=== PATIENT | female | born 1965 | race Caucasian/White ===

== ENCOUNTER 2020-02-04 13:08 | Emergency (ER) | payer BC, SELFPAY ==
[2020-02-04 13:21] VITALS: BP 110/69; PULSE 63; RESP 16; TEMP 37.2; O2SAT 100
--- NOTE | 2020-02-04 13:24 | ED.GENADULT ---
HPI - General Adult General Chief complaint: Skin/Abscess/Foreign Body Stated complaint: Rash Time Seen by Provider: 02/04/20 13:24 Source: patient and RN notes reviewed Mode of arrival: ambulatory Limitations: no limitations History of Present Illness HPI narrative: 54-year-old female presents with complaints of with redness, tenderness, and swelling to LT buttock and RT upper-anterior thigh for the past 7 days. Says she was out in the ocean in [place] 1 weeks ago prior to lesions forming. Applied over the counter ointment and warm soaks without relief. Tender to touch. Clear drainage intermittently. History of skin abscess. Denies history of MRSA. No fever or chills. No abdominal pain, nausea, and vomiting. Remains active. The patient reports she have not been diagnosed with COVID-19. The patient reports she is not waiting for the results of a COVID-19 lab test. The patient reports she do not have fever, chills, weakness, fatigue, or myalgia. The patient reports she do not have a new or worsening cough or shortness of breath. Denies chest pain. The patient reports she do not have any rhinorrhea, congestion, sore throat, nausea, vomiting, abdominal pain, and diarrhea. Tolerating po intake well. Recent traveled to [place] for family vacation and practiced social distance. Denies concerns for COVID-19 or exposures, work, and return home. At this time, patient is not suspected of having COVID-19. Some parts of this dictation were generated by voice recognition software and may contain typographical and/or grammatical inaccuracies. Related Data Allergies Allergy/AdvReac Type Severity Reaction Status Date / Time No Known Allergies Allergy Verified 02/04/20 13:25 Review of Systems Review of Systems: Narrative: CONSTITUTIONAL: Denies fever, chills, sweats. EYES: Denies visual changes, redness, discharge. ENT: Denies rhinorrhea, congestion, sore throat, otalgia. CARDIOVASCULAR: Denies chest pain, palpitations, edema. RESPIRATORY: Denies dyspnea, wheezing, cough. GASTROINTESTINAL: Denies abdominal pain, nausea, vomiting, diarrhea. GENITOURINARY: Denies dysuria, hematuria, abnormal discharge. SKIN: Denies rash or itching. Left buttock and Right upper-anterior thigh with redness, tenderness, swelling, and drainage. MUSCULOSKELETAL: Denies acute back pain, joint pain, or myalgia. NEUROLOGIC: Denies numbness or focal weakness. PSYCHIATRIC: Denies anxiety or depression. All systems reviewed & are unremarkable except as noted in HPI and below. [facility] Past Medical History Medical History (Updated 02/10/20 @ 14:41 by MARA Fournier) Abnormal colonoscopy Abscess Alcohol abuse Alopecia Chronic anxiety Chronic rhinitis Colon polyps Surgical History Surgical History (Updated 02/10/20 @ 14:40 by MARA Fournier) History of colonoscopy Family History Family History (Updated 03/21/19 @ 10:10 by DOCTOR UNKNOWN) Grandparent Diabetes mellitus Acute myocardial infarction Mother Family history of cardiac disorder Social History Social History (Updated 02/10/20 @ 14:41 by MARA Fournier) Smoking status: Former smoker Smoking end date: 07/06/05 Alcohol intake: current Substance use: never Living arrangements: with family Occupation/Education: occupation Gender identity (if verbalized by the patient): Female Sexual Orientation (if Verbalized by the Patient): Straight or Heterosexual Comments At time of signature, I have reviewed and agree with nursing past medical, surgical, social, and family history. Please see nursing chart for further information. There is relevant patient's past medical history pertinent to the presenting complaint, no relevant family history pertinent to the presenting complaint. Exam Narrative: Exam Narrative: GENERAL: This is a well-nourished, well-developed patient, in no apparent distress. Talking in full sentences without deficit and ambulate w
== END 2020-02-04 13:59 | disposition home or self-care (01) ==
PROVIDERS: Emergency Provider Nurse Practitioner Family; PCP Family Medicine
DX: H60.01 Abscess of right external ear (principal); Z87.891 Personal history of nicotine dependence
CPT/HCPCS: 10160; 87070; 87075; 87147; 87186; 87205; 99213; G0463

== ENCOUNTER 2020-04-27 03:31 | Outpatient (CLI) | payer BC, SELFPAY ==
[2020-04-27 17:45] LABS: SARS-CoV-2 RNA PCR Negative
== END 2020-04-27 03:32 | disposition home or self-care (01) ==
LOC: ANHCOVIDDT 03:31
PROVIDERS: PCP Family Medicine; Visit Provider Internal Medicine Gastroenterology
DX: Z01.812 Encounter for preprocedural laboratory examination (principal); Z20.828 Contact with and (suspected) exposure to other viral communicable diseases
CPT/HCPCS: 87635; C9803; U0003

== ENCOUNTER 2020-04-30 01:01 | Day surgery (SDC) | payer BC, SELFPAY ==
[2020-04-23 12:18] VITALS: BMI 30.7
[2020-04-30] MEDS: LACTATED RINGERS 1,000 ML 150 ML IV CONT (08:27)
[2020-04-30 08:30] VITALS: BP 111/80; PULSE 66; RESP 20; TEMP 36.5; O2SAT 99; BMI 29.9
--- NOTE | 2020-04-30 08:34 | WPDANESEPPF ---
Anes - Initial Pre Proc Eval Procedure: Operation Date: 04/30/20 09:00 Proposed Procedures p Screening Colonoscopy - Jim Klein MD Date/Time: 04/30/20 08:34 Surgeon: Jim Klein MD Pre Op Diagnosis: neoplasm screening Patient Data Age: 54 Gender: F Height: 5 ft 6 in Weight: 84.1 kg Last Vital Signs Temp 97.7 F 04/30/20 08:30 Pulse 66 04/30/20 08:30 Resp 20 04/30/20 08:30 BP 111/80 04/30/20 08:30 Pulse Ox 99 04/30/20 08:30 Allergies Allergy/AdvReac Type Severity Reaction Status Date / Time No Known Allergies Allergy Verified 04/30/20 08:16 Home Medications Medication Instructions Recorded Confirmed Type alprazolam 0.25 mg tablet 0.25 mg PO TID PRN #60 tablet 04/05/20 04/23/20 Rx Patient hx anesthesia problems: none Family hx anesthesia problems: none PMFSH Past Medical History Medical History (Updated 02/15/20 @ 15:32 by Cristiano Carlson MD) Abnormal colonoscopy Abscess Alcohol abuse Alopecia Chronic anxiety Chronic rhinitis Colon polyps Surgical History Surgical History History of colonoscopy Family History Family History Grandparent Diabetes mellitus Acute myocardial infarction Mother Family history of cardiac disorder Social History Social History Smoking status: Former smoker Tobacco type: cigarettes Smoking end date: 07/06/05 Alcohol intake: current Alcohol use details: SOCIALLY Substance use: never Substance use type: does not use Last use: 8 YEARS AGO Living arrangements: with family Gender identity (if verbalized by the patient): Female Spiritual care concerns: No Anes - Eval Final PreProcedure Day of Procedure 04/30/20 08:34 Patient weight: normal Heart: regular rate and rhythm Lungs: clear to auscultation Airway: Mallampati scale class II Neurological: alert and oriented Last oral intake: >/= 8 hours ASA classification: II Emergent: no Anesthetic plan: proceed Anesthesia type and monitoring: general GIVS and standard monitoring Informed Consent: The patient's anesthetic plan and its attendant risks and benefits were discussed with the patient/family/POA. Questions were solicited and answers provided to the satisfaction of the patient/family/POA.
--- NOTE | 2020-04-30 08:39 | PM.HPGS ---
History of Present Illness History of Present Illness Consent: Risks, benefits, and alternatives have been discussed and questions answered. Patient agrees to proceed with procedure. Chief complaint: neoplasm screening Narrative: Jocelyne Costa is a 54 year old W female undergoing screening colonoscopy secondary to a malignant polyp which was removed in April 2017. Was well differentiated adenocarcinoma invading the submucosa but not involving the resection margin. Patient did have a follow-up colonoscopy August 2017 there is no residual polyp near the tattoo site. Patient is asymptomatic but undergoing of follow-up exam. [facility] Past Medical History Medical History Abnormal colonoscopy Abscess Alcohol abuse Alopecia Chronic anxiety Chronic rhinitis Colon polyps Surgical History Surgical History History of colonoscopy Family History Family History Grandparent Diabetes mellitus Acute myocardial infarction Mother Family history of cardiac disorder Social History Social History Smoking status: Former smoker Tobacco type: cigarettes Smoking end date: 07/06/05 Alcohol intake: current Alcohol use details: SOCIALLY Substance use: never Substance use type: does not use Last use: 8 YEARS AGO Living arrangements: with family Gender identity (if verbalized by the patient): Female Spiritual care concerns: No Meds Home Medications and Allergies Home Medications Medication Instructions Recorded Confirmed Type alprazolam 0.25 mg tablet 0.25 mg PO TID PRN #60 tablet 04/05/20 04/23/20 Rx Allergies Allergy/AdvReac Type Severity Reaction Status Date / Time No Known Allergies Allergy Verified 04/30/20 08:16 Vital Signs Vital Signs - 24 hr 04/30/20 08:30 Temperature 36.5 C Pulse Rate 66 Respiratory Rate 20 Blood Pressure 111/80 Pulse Oximetry 99 Exam Const: Orientation/consciousness: patient oriented x3 Resp: Auscultation: clear to auscultation bilaterally Cardio: Rate: regular rate Rhythm: regular rhythm Heart sounds: no murmurs GI: GI Palp: Yes Soft to palpation, No Tenderness to palpation present (GI), Yes No hepatosplenomegaly present and No Palpable mass present Auscultation: normal bowel sounds Neuro: General: patient oriented x3 and no focal motor deficits Extrem: General: no pedal edema Assessment and Plan Additional Plan Screening colonoscopy secondary history of colon cancer
[2020-04-30 10:02] VITALS: BP 98/58; PULSE 61; RESP 16; O2SAT 100
[2020-04-30 10:12] VITALS: BP 120/70; PULSE 63; RESP 22; O2SAT 100
[2020-04-30 10:22] VITALS: BP 100/69; PULSE 55; RESP 21; O2SAT 100
== END 2020-04-30 10:30 | disposition home or self-care (01) ==
PROVIDERS: PCP Family Medicine; Visit Provider Internal Medicine Gastroenterology
PROC: 0DJD8ZZ Inspection of Lower Intestinal Tract, Via Natural or Artificial Opening Endoscopic (ICD-10-PCS; CPT 45378; principal; 2020-04-30 09:00)
DX: Z12.11 Encounter for screening for malignant neoplasm of colon (principal); L65.9 Nonscarring hair loss, unspecified; F41.9 Anxiety disorder, unspecified; J31.0 Chronic rhinitis; Z87.891 Personal history of nicotine dependence; F10.10 Alcohol abuse, uncomplicated; Z85.038 Personal history of other malignant neoplasm of large intestine
CPT/HCPCS: 45378; J2704; J7120

== ENCOUNTER 2021-03-20 16:47 | Emergency (ER) | payer BC, SELFPAY ==
[2021-03-20 16:57] VITALS: BP 130/80; PULSE 66; RESP 18; TEMP 36.8; O2SAT 100
--- NOTE | 2021-03-20 17:16 | ED.FEMALEGU ---
HPI - Female Genitourinary General Chief complaint: Urogenital-Female Stated complaint: UTI Time Seen by Provider: 03/20/21 17:17 Source: patient Mode of arrival: ambulatory Limitations: no limitations History of Present Illness HPI Narrative: Jocelyne Costa is a 55 yo female with a PMH of anxiety who [facility] complaining of urinary tract symptoms x1 week. She states she has had pressure and burning is tried drinking water, drinking cranberry juice, improving good hygiene. She is mildly upset because of other family issues going on and states that she has been somewhat stressed and drinks alcohol bit more than she normally does Related Data Allergies Allergy/AdvReac Type Severity Reaction Status Date / Time No Known Allergies Allergy Verified 03/20/21 17:03 Review of Systems Review of Systems: CONSTITUTIONAL: Denies fever, chills, sweats. EYES: Denies visual changes, redness, discharge. ENT: Denies rhinorrhea, congestion, sore throat, otalgia. CARDIOVASCULAR: Denies chest pain, palpitations, edema. RESPIRATORY: Denies dyspnea, wheezing, cough GASTROINTESTINAL: Denies abdominal pain, nausea, vomiting, diarrhea. GENITOURINARY: Has dysuria, hematuria, abnormal discharge SKIN: Denies rash or itching. NEUROLOGIC: Denies numbness, or focal weakness. PSYCHIATRIC: Denies anxiety or depression. [facility] Past Medical History Medical History Abnormal colonoscopy Abscess Alcohol abuse Alopecia Chronic anxiety Chronic rhinitis Colon cancer Colon polyps Surgical History Surgical History History of colonoscopy Family History Family History Grandparent Diabetes mellitus Acute myocardial infarction Mother Family history of cardiac disorder Social History Social History Smoking status: Former smoker Tobacco type: cigarettes Smoking end date: 07/06/05 Alcohol intake: current Alcohol use details: SOCIALLY Substance use: never Substance use type: does not use Last use: 8 YEARS AGO Gender identity (if verbalized by the patient): Female Sexual Orientation (if Verbalized by the Patient): Straight or Heterosexual Spiritual care concerns: No Comments At time of signature, I agree with nursing past medical, surgical, social and family history. There is no relevant family history pertinent to the presenting complaint. Exam Narrative: GENERAL: This is a well-nourished, well-developed patient, in mild distress. HEAD: normocephalic, atraumatic. EYES: Sclera clear/white. Vision is grossly intact. EARS: External ears normal. Hearing grossly intact. NOSE: External nose normal without nasal discharge, nares without redness, no rhinorrhea. THROAT: Mucous membranes moist, NECK: Neck supple, non-tender CARDIOVASCULAR: Regular rate and rhythm without murmurs, gallops, or rubs. RESPIRATORY: Clear to auscultation. Breath sounds equal bilaterally. No wheezes, rales, or rhonchi. GASTROINTESTINAL: Abdomen soft, non-tender, SKIN: warm, intact with no suspicious lesions or rash, good texture and turgor. NEURO: awake, alert, and oriented to person, place and time. There were no obvious focal neurologic abnormalities. Steady gait EXTREMITIES: Normal range of motion. BACK: Nontender without deformity Course Course Emergency Course: Patient here with area check symptoms that started a week ago she has tried to treat them with increasing her water, intake as well as drinking cranberry juice She is mildly upset in the office states things are going well with home she has been having a lot of anxiety-talks to her primary care physician UA shows blood and trace leukocytes Started on cephalexin x7 days Patient is to take full prescription, she is leaving on a trip on Thursday for her 31th w
== END 2021-03-20 18:17 | disposition home or self-care (01) ==
PROVIDERS: Emergency Provider Nurse Practitioner; PCP Family Medicine
DX: N30.90 Cystitis, unspecified without hematuria (principal); Z87.891 Personal history of nicotine dependence
CPT/HCPCS: 81003; 87077; 87086; 87088; 87186; 99213; G0463

== ENCOUNTER 2022-03-26 21:53 | Emergency (ER) | payer BC, SELFPAY ==
--- NOTE | ~2022-03-26 | XR_ITS ---
EXAM: XR wrist LT min 3V DATE: 03/26/2022 22:12 HISTORY: fall TONIGHT, SWELLING TO LATERAL POSTERIOR SIDE . COMPARISON: None available. FINDINGS: Normal mineralization. Comminuted, mildly impacted fracture of the left distal radius, wit h intra-articular extension. No lytic or blastic lesion. Degenerative changes in the wrist, likely se condary to ulnar impaction. No erosion or periosteal change. Soft tissue swelling about the wrist. IMPRESSION: Comminuted, mildly impacted fracture of the distal left radius, with intra-articular exte nsion. Reviewed, dictated and finalized at location K. IMPRESSION: Comminuted, mildly impacted fracture of the distal left radius, wit h intra-articular extension.
[2022-03-26 22:19] VITALS: BP 115/68; PULSE 80; RESP 16; TEMP 36.6; O2SAT 99
--- NOTE | 2022-03-27 00:12 | ED.UPPEXIN ---
HPI - Extremity Injury (Upper) General Chief Complaint: Extremity Injury, Upper Stated Complaint: fall/left wrist injury Time Seen by Provider: 03/26/22 23:58 Source: patient Mode of arrival: ambulatory Limitations: no limitations History of Present Illness HPI narrative: This is a 56-year-old female that presents emergency department after a fall today with left wrist injury. Reports she slipped and fell in her garage. She fell onto her bottom and caught herself with her left wrist. Reports pain and swelling in the left wrist. Denies hitting her head or loss of consciousness. Reports decreased range of motion due to pain. Denies numbness. Related Data Allergies Allergy/AdvReac Type Severity Reaction Status Date / Time No Known Allergies Allergy Verified 03/26/22 23:32 Review of Systems Review of Systems: CONSTITUTIONAL: Denies fever MUSCULOSKELETAL: Reports joint pain, and myalgia. NEUROLOGIC: Denies numbness All systems reviewed & are unremarkable except as noted in HPI and below PMFSH Past Medical History Medical History Abnormal colonoscopy Abscess Alcohol abuse Alopecia Chronic anxiety Chronic rhinitis Colon cancer Colon polyps Encounter for wellness examination in adult Epistaxis, recurrent (~07/2021) UTI (urinary tract infection) Surgical History Surgical History History of colonoscopy Family History Family History Grandparent Diabetes mellitus Acute myocardial infarction Mother Family history of cardiac disorder Social History Social History Smoking status: Former smoker Tobacco type: cigarettes Smoking end date: 07/06/05 Alcohol intake: current Alcohol use details: SOCIALLY Substance use: never Substance use type: does not use Last use: 8 YEARS AGO Gender identity (if verbalized by the patient): Female Sexual Orientation (if Verbalized by the Patient): Straight or Heterosexual Spiritual care concerns: No Exam Narrative: GENERAL: Well-appearing, well-nourished, and in no acute distress. HEAD: Normocephalic, atraumatic. EYES: EOMI. CHEST: Clear to auscultation. No respiratory distress. No wheezes rales or rhonchi HEART: Regular rate and rhythm. No murmur heard. Normal peripheral pulses. EXTREMITIES: Normal range of motion. No obvious deformity. Edema noted about the left wrist. Normal radial pulse. Normal sensation SKIN: Warm, dry, no rash. NEURO: No focal deficits. Alert and oriented x3. PSYCH: Normal mood and affect Course Vital Signs Vital signs: Vital Signs Temperature 97.9 F 03/26/22 22:19 Pulse Rate 80 03/26/22 22:19 Respiratory Rate 16 03/26/22 22:19 Blood Pressure 115/68 03/26/22 22:19 Pulse Oximetry 99 03/26/22 22:19 Oxygen Delivery Room Air 03/26/22 22:19 Temperature 97.9 F 03/26/22 22:19 Pulse Rate 73 03/27/22 00:40 Respiratory Rate 20 03/27/22 00:40 Blood Pressure 112/80 03/27/22 00:40 Pulse Oximetry 98 03/27/22 00:40 Oxygen Delivery Room Air 03/26/22 22:19 Procedures Orthopedic Splinting/Casting Injury #1: Splinting/Casting Date: 03/27/22 Splinting/Casting Time: 00:17 Side: left Upper Extremity Injury Location: wrist Upper Extremity Immobilizer: volar splint Splint: customized in ED OCL: volar Pre-Procedure Neuro Vascular Exam: normal Post-Procedure Neuro Vascular Exam: normal MDM - Extremity Injury (Upper) MDM Narrative Medical decision making narrative: Patient presents to the emergency department after ground-level fall today with left wrist pain. Patient is neurovascularly intact. Left wrist x-ray shows a comminuted mildly impacted fracture of the distal left radius. Patient placed in a splint. Will
[2022-03-27] MEDS: HYDROcodone/acetaminophen (*CRX) 5-325 MG TABLET 1 TAB PO (00:16)
[2022-03-27 00:25] VITALS: BP 113/83; PULSE 72; RESP 18; O2SAT 97
[2022-03-27 00:40] VITALS: BP 112/80; PULSE 73; RESP 20; O2SAT 98
== END 2022-03-27 00:35 | disposition home or self-care (01) ==
PROVIDERS: Emergency Provider General Practice; PCP Family Medicine
DX: S52.572A Other intraarticular fracture of lower end of left radius, initial encounter for closed fracture (principal); Z85.038 Personal history of other malignant neoplasm of large intestine; Z86.010 Personal history of colon polyps; Z87.440 Personal history of urinary (tract) infections; Z87.891 Personal history of nicotine dependence; W01.0XXA Fall on same level from slipping, tripping and stumbling without subsequent striking against object, initial encounter
CPT/HCPCS: 29125; 73110; 99284; A9270

== ENCOUNTER 2023-06-22 10:32 | Emergency (ER) | payer BC, SELFPAY ==
--- NOTE | ~2023-06-22 | XR_ITS ---
Right Knee Technique: AP, lateral, and sunrise views were obtained. Clinical History: Pain Findings: No fracture or dislocation is seen. Osseous alignment is anatomic. Joint spaces are preserv ed without degenerative or erosive change. Large joint effusion is seen. Impression: Large joint effusion, nonspecific. No fracture or subluxation seen. Reviewed, dictated and finalized at location . [employer] Impression: Large joint effusion, nonspecific. No fracture or subluxation seen.
--- NOTE | 2023-06-22 11:31 | ED.LOWEXIN ---
HPI - Extremity Injury (Lower) General Chief Complaint: Extremity Injury, Lower Stated Complaint: lower extremity injury Time Seen by Provider: 06/22/23 11:23 Source: patient and RN notes reviewed Mode of arrival: ambulatory Limitations: no limitations History of Present Illness HPI Narrative: Patient presents today complaining of a right knee injury. Yesterday she was shopping, tripped and fell onto her right knee, and limped the rest of the day. She currently rates her pain 8/10 and has been taking ibuprofen and using ice without much relief. Denies numbness or tingling in her leg or foot. Related Data Home Medications Medication Instructions Recorded Confirmed semaglutide 0.25 mg or 0.5 mg (2 0.5 mg subcut WEEKLY 06/04/23 06/22/23 mg/3 mL) subcutaneous pen injector (XunLightempRatify) Allergies Allergy/AdvReac Type Severity Reaction Status Date / Time No Known Allergies Allergy Verified 06/22/23 10:52 Review of Systems Review of Systems: CONSTITUTIONAL: Denies body aches, fever, chills, or sweats. EYES: Denies visual changes, redness, or discharge. ENT: Denies rhinorrhea, congestion, sore throat, or otalgia. CARDIOVASCULAR: Denies chest pain, palpitations, or edema. RESPIRATORY: Denies cough or dyspnea. GASTROINTESTINAL: Denies abdominal pain, nausea, vomiting, or diarrhea. GENITOURINARY: Denies dysuria or hematuria. SKIN: Denies rash, itching, or wounds. MUSCULOSKELETAL: Denies back pain, or myalgia.+ right knee pain NEUROLOGIC: Denies headache, numbness, tingling, or weakness. PSYCH: Denies depression or anxiety. [facility] Past Medical History Medical History Abnormal colonoscopy Abscess Alcohol abuse Alopecia BMI 30.0-30.9,adult Breast cancer screening by mammogram Chronic anxiety Chronic rhinitis Closed fracture of distal end of left radius (03/27/22) Colon cancer (04/30/20) polyp with well- Differentiated adenocarcinoma removed April 2017 with normal colonoscopy August 2017. Colonoscopy 04/30/2020 normal with recheck in 3 years. Colon polyps Encounter for wellness examination in adult Epistaxis, recurrent (~07/2021) Obesity (BMI 30.0-34.9) Personal history of colonic polyps Pharyngitis UTI (urinary tract infection) Surgical History Surgical History History of colonoscopy Family History Family History Grandparent Diabetes mellitus Acute myocardial infarction Mother Family history of cardiac disorder Social History Social History Smoking status: Former smoker Tobacco type: cigarettes Smoking end date: 07/06/05 Alcohol intake: former Substance use: never Substance use type: does not use Last use: 8 YEARS AGO Living arrangements: with family Occupation/Education: occupation Gender identity (if verbalized by the patient): Female Sexual Orientation (if Verbalized by the Patient): Straight or Heterosexual Spiritual care concerns: No Comments At time of signature, I have reviewed and agree with nursing past medical, surgical, social and family history unless otherwise noted. Please see nursing chart for further information. There is no relevant family history pertinent to the presenting complaint Exam Narrative: GENERAL: Well-appearing, well-nourished, and in no acute distress. HEAD: Normocephalic, atraumatic. EYES: EOMI. No redness or drainage. Conjunctivae normal. ENT: Mucous membranes pink and moist. NECK: Normal AROM. CHEST: No respiratory distress. EXTREMITIES: Right knee: Moderate swelling about the knee. Mild tenderness to the patella with some superficial abrasions to this area. No tenderness posteriorly. No abnormal movement of the patella. No tenderness to the patellar tendon. Pain with flex
[2023-06-22 12:08] VITALS: BP 108/77; PULSE 73; RESP 18; TEMP 36.3; O2SAT 100
== END 2023-06-22 12:20 | disposition home or self-care (01) ==
PROVIDERS: Emergency Provider Nurse Practitioner; PCP Family Medicine
DX: M25.461 Effusion, right knee (principal); Z87.891 Personal history of nicotine dependence; W01.0XXA Fall on same level from slipping, tripping and stumbling without subsequent striking against object, initial encounter
CPT/HCPCS: 73564; 99213; G0463

== ENCOUNTER 2023-07-02 15:02 | Inpatient (IN) | payer BC, SELFPAY ==
[2023-07-02] VITALS (22 sets, daily range): BP systolic 104–139; BP diastolic 51–89; PULSE 101–133; RESP 18–28; TEMP 36.9–38.4; O2SAT 72–100
--- NOTE | ~2023-07-02 | CT_ITS ---
EXAMINATION: CTA chest PE protocol DATE: 07/02/2023 16:43 INDICATION: This of breath and hypoxia TECHNIQUE: Computed tomography (CT) pulmonary angiogram of the chest was performed with 100 mL Omnipa que-350 intravenous contrast. Additional 3D reconstructions utilizing coronal maximum intensity proje ction (MIP) were performed. Automated exposure control and iterative reconstruction technique were em ployed. The dose-length product was 488.78 mGy-cm. COMPARISON: None FINDINGS: Good contrast opacification of the pulmonary arteries. There is mild streak artifact from dense contr ast in the superior vena cava and right atrium. There is mild respiratory motion at the bilateral low er lung zones which decreases sensitivity in some of the basilar subsegmental pulmonary arteries prim arily in the left lower lung zone. No evident pulmonary embolism. There is patchy consolidation in th e lingula,, right middle lobe and basilar aspect of the lower lobes, minimal on the right and more pr ominent on the left. There are also more extensive centrilobular groundglass opacities extend more ce phalad within each of these lobes. Appearance most consistent with pneumonia. No smooth septal line t hickening to suggest pulmonary edema. No pleural effusion. Heart size is normal. Small pericardial ef fusion. Thoracic aorta is normal in caliber with no dissection. No pathologically enlarged thoracic l ymphadenopathy. 1.1 cm fluid attenuation hepatic cyst. There is a larger 1.8 cm lesion at the dome of the liver which is of greater than simple fluid attenuation but less than that of the surrounding li bethany which on MRI dated 05/03/2017 corresponds to a hemangioma. Moderate thoracic spondylosis. IMPRESSION: 1. No evident pulmonary embolism. Sensitivity decreased in some of the smaller basilar subsegmental p ulmonary arteries. 2. Extensive airspace disease in the basilar lingula, right middle and bilateral lower lobes with juanita earance most consistent with pneumonia. Reviewed, dictated and finalized at location A. R TRACER IMPRESSION: 1. No evident pulmonary embolism. Sensitivity decreased in some of the smaller basilar subsegmental pulmonary arteries. 2. Extensive airspace disease in the basilar lingula, right middle and bilatera l lower lobes with appearance most consistent with pneumonia.
--- NOTE | ~2023-07-02 | US_ITS ---
EXAMINATION: US venous doppler LE RT DATE: 07/02/2023 19:52 INDICATION: leg pain . TECHNIQUE: Grayscale images without and with compression and Doppler images of the right lower extrem ity veins were obtained. COMPARISON: None FINDINGS: The right common femoral vein, profunda (deep) femoral vein, femoral vein, popliteal vein, peroneal v ein, posterior tibial veins, gastrocnemius vein, and greater saphenous vein are patent. IMPRESSION: Patent right lower extremity veins. No evidence of deep venous thrombosis. Reviewed, dictated and finalized at location K. FRAME CONSULTANT
--- NOTE | ~2023-07-02 | XR_ITS ---
EXAMINATION: XR chest 1V portable DATE: 07/04/2023 10:11 INDICATION: Shortness of breath and cough. TECHNIQUE: A single frontal view of the chest was obtained. COMPARISON: Chest single view 07/03/2023, chest CT 07/02/2023 FINDINGS: There are small pleural effusions. There is mild scarring at the lung apices. There are air space opacities in the lower lung zones, left worse than right. No pneumothorax. The heart size is no rmal. IMPRESSION: 1. Airspace opacities in the lower lung zones, left worse than right with improvement on the left, co nsistent with pneumonia. 2. Small pleural effusions. Reviewed, dictated and finalized at location A. NO CAGE MANAGER IMPRESSION: 1. Airspace opacities in the lower lung zones, left worse than right with impro vement on the left, consistent with pneumonia. 2. Small pleural effusions.
--- NOTE | ~2023-07-02 | XR_ITS ---
EXAMINATION: XR chest 1V portable DATE: 07/05/2023 12:45 INDICATION: Shortness of breath. TECHNIQUE: A single frontal view of the chest was obtained. COMPARISON: Chest single view 07/04/2023 FINDINGS: There are airspace opacities in the lower lung zones, left worse than right. There is a sma ll right pleural effusion. No pneumothorax. The heart size is normal. IMPRESSION: 1. Stable airspace opacities in the lower lung zones, consistent with pneumonia. 2. Stable small right pleural effusion. Reviewed, dictated and finalized at location A. ATIONS SUPPORT SPECIALIST IMPRESSION: 1. Stable airspace opacities in the lower lung zones, consistent with pneumonia . 2. Stable small right pleural effusion.
--- NOTE | ~2023-07-02 | XR_ITS ---
XR chest 1V portable 07/03/2023 11:18 Indication: Shortness of breath. Covid restrictions. Procedure: AP portable chest Comparison: 12/22/2012 Findings: Bibasilar airspace disease. Small pleural effusions. No pneumothorax. Heart size normal. No acute osseous abnormality. Impression: 1: Bibasilar airspace disease may represent atelectasis or pneumonia. 2: Small pleural effusions. Reviewed, dictated and finalized at location A. HOUSE OPERATOR Impression: 1: Bibasilar airspace disease may represent atelectasis or pneumonia. 2: Small pleural effusions.
--- NOTE | 2023-07-02 15:32 | ECG_ITS ---
Measurements Intervals [place] Rate: 107 P: 54 [place]: 184 QRS: 50 QRSD: 87 T: 51 QT: 335 QTc: 449 Interpretive Statements SINUS TACHYCARDIA POSSIBLE LEFT ATRIAL ENLARGEMENT [-0.1mV P WAVE IN V1/V2] NONSPECIFIC T-WAVE ABNORMALITY ABNORMAL RHYTHM ECG NO PREVIOUS ECG AVAILABLE FOR COMPARISON Electronically Signed On 07-03-2023 16:27:11 PRIMER POWDER BLENDER WET by Nely Carrasquillo M.D.
--- NOTE | 2023-07-02 15:32 | ED.GENADULT ---
HPI - General Adult General Chief complaint: Syncope Stated complaint: syncopal x 2/n/v Time Seen by Provider: 07/02/23 15:21 History of Present Illness HPI narrative: 58-year-old female present to the emergency department for evaluation after 3 syncopal episode secondary to nausea and vomiting. Patient reports she began feeling poorly around [place]. Patient states last night she worsens or this morning she had the 3 syncopal episodes. Patient does have a history of smoking but is no longer smoker. Patient does report multiple sick contacts at her home where she may have contracted a viral illness. Patient does have a history of a right knee injury was complaining of increased pain of the right leg. Patient does have a prior x-ray showing no acute fracture. Related Data Home Medications Medication Instructions Recorded Confirmed semaglutide 0.25 mg or 0.5 mg (2 0.5 mg subcut WEEKLY 06/04/23 07/02/23 mg/3 mL) subcutaneous pen injector (Ozempic) Allergies Allergy/AdvReac Type Severity Reaction Status Date / Time No Known Allergies Allergy Verified 07/02/23 15:38 Review of Systems Review of Systems: All systems reviewed & are unremarkable except as noted in HPI and below PMFSH Past Medical History Medical History Abnormal colonoscopy Abscess Alcohol abuse Alopecia BMI 30.0-30.9,adult Breast cancer screening by mammogram Chronic anxiety Chronic rhinitis Closed fracture of distal end of left radius (03/27/22) Colon cancer (04/30/20) polyp with well- Differentiated adenocarcinoma removed April 2017 with normal colonoscopy August 2017. Colonoscopy 04/30/2020 normal with recheck in 3 years. Colon polyps Encounter for wellness examination in adult Epistaxis, recurrent (~07/2021) Obesity (BMI 30.0-34.9) Personal history of colonic polyps Pharyngitis UTI (urinary tract infection) Surgical History Surgical History History of colonoscopy Family History Family History Grandparent Diabetes mellitus Acute myocardial infarction Mother Family history of cardiac disorder Social History Social History Smoking status: Former smoker Tobacco type: cigarettes Smoking end date: 07/06/05 Alcohol intake: former Substance use: never Substance use type: does not use Last use: 8 YEARS AGO Living arrangements: with family Occupation/Education: occupation Gender identity (if verbalized by the patient): Female Sexual Orientation (if Verbalized by the Patient): Straight or Heterosexual Spiritual care concerns: No Exam Narrative: APPEARANCE: Ill-appearing HEAD: normocephalic, atraumatic. EYES: PERRLA/EOMI, conjunctivae clear. NOSE: Normal no drainage EARS:TMS clear with good light reflex. THROAT: Pharynx clear, no exudate. NECK: Supple. No adenopathy, no masses. RESPIRATORY: Airway patent, respirations nonlabored. Wheeze bilateral lower lobes CARDIOVASCULAR: Regular rate and rhythm without murmurs rubs or gallops. ABDOMINAL: Soft, nontender, nondistended, normal bowel sounds MUSCULOSKELETAL: Moves all extremities. Strength/ROM intact, No edema, No calf tenderness. NEURO: Alert. Cranial nerves II through XII intact. Grossly intact Course Course Emergency Course: 58-year-old female presenting ED for evaluation of hypoxia shortness of breath and feeling ill. Patient was afebrile with no leukocytosis and a stable hemoglobin. No significant abnormalities on her CMP BNP is not significantly elevated UA shows no evidence of infection patient did test positive for influenza A. CTA was ordered to evaluate for pulmonary embolism due to hypoxia and tachycardia. CT showed no evidence of pulmonary embolism but did show evidence of pneumonia. Rahul
[2023-07-02 15:43] LABS: Basophils Percent Auto 0.5 % (0.2-1.2); Eosinophils Percent Auto 0.2 % (0-4.4); Hematocrit 40.6 % (37.0-47.0); Hemoglobin 12.8 g/dL (12.0-15.0); Immature Granulocyte Absolute 0.04 K/mm3 (0.00-0.031); Immature Granulocyte Percent A 0.5 % (0-0.5); Lymphocytes Absolute Auto 0.43 K/mm3 (0.9-3.2); Lymphocytes Percent Auto 4.9 % (18.3-44.2); Mean Corpuscular HGB Conc 31.5 g/dl (32-36); Mean Corpuscular Volume 82.4 fl (80-100); Mean Platelet Volume 9.5 fl (7.4-10.4); Monocytes Absolute Auto 0.3 K/mm3 (0.1-0.6); Monocytes Percent Auto 3.6 % (2.6-8.5); Neutrophils Absolute Auto 7.9 K/mm3 (1.3-6.7); Neutrophils Percent Auto 90.3 % (45.5-73.1); Platelet Count Result 296 k/mm3 (150-375); Red Blood Count 4.93 M/mm3 (4.2-5.4); Red Cell Distribution Width 13.7 % (11.5-14.5); White Blood Count 8.7 K/mm3 (4.5-10.0)
[2023-07-02] MEDS: IPRATROPIUM BR 0.02% INH SOLN 0.5 MG/2.5 ML VIAL INHALATION ×2 (15:51→21:50)
[2023-07-02] MEDS: ALBUTEROL SULFATE NEB 2.5 MG/3 ML INH 5 MG INHALATION (15:51)
[2023-07-02 15:52] LABS: Alveolar/Arterial O2 Gradient 596.1 mmHg; Base Excess ABG 1.1 mEq/l (+/-2.0); Carboxyhemoglobin 0.8 % THb (0-2.0); Fractional Inspired Oxygen 100 %; HCO3 ABG 25.9 mEq/l (22.0-26.0); Methemoglobin ABG 0.2 %THb (0-1.5); Oxygen Content ABG 17.5 %vol (16.0-22.0); Oxygen Saturation ABG 95.2 % (95.0-100.0); Oxyhemoglobin 94.2 % THb (90.0-100.0); PCO2 ABG 41.8 mmHg (35.0-45.0); PO2 ABG 75.1 mmHg (80.0-100.0); PO2 FiO2 Ratio Arterial Blood 0.75 %; Reduced Hemoglobin 4.8 %THb (0-5.0); Total Hemoglobin 13.2 g/dL (12.0-18.0)
[2023-07-02 15:53] LABS: Lactic Acid Reflex 1.4 mmol/L (0.7-2.0)
[2023-07-02 15:54] LABS: Alanine Aminotransferase 13 U/L (6-35); Albumin Level 4.4 g/dL (3.5-5.1); Alkaline Phosphatase 76 U/L (38-126); Anion Gap 11 mmol/L (8-16); Aspartate Amino Transferase 32 U/L (14-36); Bilirubin,Total 0.6 mg/dL (0.2-1.3); Blood Urea Nitrogen 13 mg/dL (7-17); Carbon Dioxide 25 mmol/L (22-30); Chloride 101 mmol/L (98-107); Estimated CRCL calculation 80 ml/min; Estimated Glomerular Filt Rate > 60; Glucose 143 mg/dL (65-110); INR 0.9; Potassium 3.6 mmol/L (3.4-5.0); Sodium 137 mmol/L (137-145)
[2023-07-02] MEDS: ONDANSETRON INJ 4 MG/2 ML VIAL IV PUSH (16:12)
[2023-07-02 16:19] LABS: Influenza A QL RT-PCR Positive (Negative); Influenza B QL RT-PCR Negative (Negative); RSV RNA, RT-PCR Negative (Negative); SARS-CoV-2 RNA PCR Negative (Negative)
[2023-07-02 17:18] LABS: Appearance Urine Clear (Clear); Bacteria Urine None Seen /hpf; Bilirubin Urine Negative (Negative); Color Urine Yellow (Yellow); Glucose Urine UA Trace mg/dL (Negative); Ketones Urine Trace mg/dL (Negative); Leukocyte Esterase Ur Negative LEU/UL (Negative); Nitrate Urine Negative (Negative); Non Pathogenic Casts 0-2; Protein Urine Negative (Negative); Squamous Epithelial Cell Urine None seen /hpf (Few); Urobilinogen Urine 0.2 mg/dL (<2.0); WBC Urine 0-5 /hpf
[2023-07-02 17:20] LABS: Add Urine Microscopic? YES
[2023-07-02] MEDS: METOCLOPRAMIDE HCL INJ 10 MG/2 ML VIAL IV PUSH (17:21)
[2023-07-02] MEDS: ACETAMINOPHEN 500 MG TABLET 1000 MG PO (17:30)
[2023-07-02 18:11] LABS: NT Pro B Type Natriuretic Pept 251 pg/mL (19.9-100)
[2023-07-02 18:51] LABS: Ethanol < 10 mg/dL (<10)
[2023-07-02] MEDS: AZITHROMYCIN 500 MG/NS 250 ML 500 MG/250 ML BAG 250 MG IVPB (18:56)
[2023-07-02 19:10] LABS: Procalcitonin 0.4 ng/mL
--- NOTE | 2023-07-02 19:14 | PC.NURSE ---
Report given to Joe NUNEZ, all questions answered.
[2023-07-02] MEDS: SODIUM CHLORIDE 0.9% IV 1,000 ML 125 ML IV CONT (20:34)
--- NOTE | 2023-07-02 21:04 | PM.IMHP ---
H&P: HPI History of Present Illness Date/Time: 07/02/23 21:04 Chief Complaint: A 58F accompanied by 2 daughters w/ PMH anxiety and previous alcohol abuse presents with 1 day of shortness of breath, cough, nausea vomiting and syncope x3. The patient developed a dry cough and shortness of breath 1 day prior to admission, when she woke up the day of admission she felt extremely nauseous and stayed in bed. She was laying on her left side when she began to have non bloody vomit. This happened 3 times with immediate syncope. No seizure activity and no fall as she was laying in bed. The last time she came to she felt a sore chest which lasted many hours and resolved when she arrived to [place] ED. The family thinks the pt may have aspirated. The pt experienced shortness of breath during these times but it has improved since being on o2 in the ED. Of note, she complains of generalized right leg pain and instability. She was running to take a picture 2 weeks ago and fell and hit her right knee. She reports a popping sound of the right knee. Review of Systems Review of Systems: All systems reviewed & are unremarkable except as noted in HPI and below (HPI) [facility] Past Medical History Medical History Abnormal colonoscopy Abscess Alcohol abuse Alopecia BMI 30.0-30.9,adult Breast cancer screening by mammogram Chronic anxiety Chronic rhinitis Closed fracture of distal end of left radius (03/27/22) Colon cancer (04/30/20) polyp with well- Differentiated adenocarcinoma removed April 2017 with normal colonoscopy August 2017. Colonoscopy 04/30/2020 normal with recheck in 3 years. Colon polyps Encounter for wellness examination in adult Epistaxis, recurrent (~07/2021) Obesity (BMI 30.0-34.9) Personal history of colonic polyps Pharyngitis UTI (urinary tract infection) Surgical History Surgical History History of colonoscopy Family History Family History Grandparent Diabetes mellitus Acute myocardial infarction Mother Family history of cardiac disorder Social History Social History Smoking status: Former smoker Tobacco type: cigarettes Smoking end date: 07/06/05 Alcohol intake: former Substance use: never Substance use type: does not use Last use: 8 YEARS AGO Living arrangements: with family Occupation/Education: occupation Gender identity (if verbalized by the patient): Female Sexual Orientation (if Verbalized by the Patient): Straight or Heterosexual Spiritual care concerns: No Meds Home Medications and Allergies Home Medications Medication Instructions Recorded Confirmed Type semaglutide 0.25 mg or 0.5 mg (2 0.5 mg subcut WEEKLY 06/04/23 07/02/23 History mg/3 mL) subcutaneous pen injector ([employer]) Allergies Allergy/AdvReac Type Severity Reaction Status Date / Time No Known Allergies Allergy Verified 07/02/23 15:38 Vital Signs Vital Signs - 24 hr 07/02/23 15:05 07/02/23 15:23 07/02/23 15:23 Temperature 98.5 F Pulse Rate 104 H Respiratory Rate 20 Blood Pressure 115/65 Pulse Oximetry 74 L 72 L 80 L Oxygen Delivery Room Air Room Air Nasal Cannula Oxygen Flow Rate 6 Fraction of Inspired Oxygen 07/02/23 15:23 07/02/23 15:39 07/02/23 15:51 Temperature Pulse Rate 109 H 107 H Respiratory Rate 28 H 26 H Blood Pressure 110/72 Pulse Oximetry 90 94 Oxygen Delivery Non-Rebreather Mask Oxygen Flow Rate 15 Fraction of Inspired Oxygen 07/02/23 16:14 07/02/23 16:19 07/02/23 16:01 Temperature Pulse Rate 128 H 113 H Respiratory Rate 26 H 24 H Blood Pressure 115/61 115/61 Pulse Oximetry 95 96 96 Oxygen Delivery High Flow Therapy with Na Oxygen Flow Rate 40 Fraction of Inspired Oxygen 8
[2023-07-02] MEDS: PIPERACILLN/TAZ 3.375GM/NS50ML 3.375 GM/50 ML BAG IVPB (21:29)
[2023-07-02] MEDS: ALBUTEROL SULFATE NEB 2.5 MG/3 ML INH INHALATION (21:50)
[2023-07-02 22:10] LABS: Troponin I < 0.012 ng/mL (0.000-0.034)
[2023-07-03] VITALS (30 sets, daily range): BP systolic 100–140; BP diastolic 57–77; PULSE 77–114; RESP 18–24; TEMP 36.4–38.4; O2SAT 93–100; BMI 28.3
--- NOTE | 2023-07-03 01:29 | ADMGEN ---
This patient, Jocelyne Costa, was admitted to IMU Room 231-01 at 0110 on 07/03/2023. Patient/family oriented to hospital policies and general routines including ID bracelet, bed and alarms, visiting hours, pain management, procedures, bathroom and other care routines, personal items, smoking policy, room service/diet, and visiting hours. Information on how to activate the Rapid Response Team has been discussed. Patient/Family are encouraged to report perceived risks to care and to ask questions if they do not understand what they are told or what they should do.
[2023-07-03] MEDS: ACETAMINOPHEN 500 MG TABLET 1000 MG PO ×3 (02:20→20:51)
[2023-07-03] MEDS: PIPERACILLN/TAZ 3.375GM/NS50ML 3.375 GM/50 ML BAG IVPB ×4 (02:21→20:41)
[2023-07-03] MEDS: IPRATROPIUM BR 0.02% INH SOLN 0.5 MG/2.5 ML VIAL INHALATION ×4 (02:59→21:17)
[2023-07-03] MEDS: ALBUTEROL SULFATE NEB 2.5 MG/3 ML INH INHALATION ×4 (02:59→21:17)
[2023-07-03 05:30] LABS: Basophils Percent Auto 0.1 % (0.2-1.2); Hematocrit 32.8 % (37.0-47.0); Hemoglobin 10.5 g/dL (12.0-15.0); Immature Granulocyte Absolute 0.02 K/mm3 (0.00-0.031); Immature Granulocyte Percent A 0.3 % (0-0.5); Lymphocytes Absolute Auto 0.69 K/mm3 (0.9-3.2); Lymphocytes Percent Auto 8.7 % (18.3-44.2); Mean Corpuscular Hemoglobin 26.1 pg (26-34); Mean Corpuscular Volume 81.4 fl (80-100); Mean Platelet Volume 9.7 fl (7.4-10.4); Monocytes Absolute Auto 0.5 K/mm3 (0.1-0.6); Monocytes Percent Auto 5.7 % (2.6-8.5); Neutrophils Absolute Auto 6.7 K/mm3 (1.3-6.7); Neutrophils Percent Auto 85.2 % (45.5-73.1); Platelet Count Result 250 k/mm3 (150-375); Red Blood Count 4.03 M/mm3 (4.2-5.4); Red Cell Distribution Width 13.7 % (11.5-14.5); White Blood Count 7.9 K/mm3 (4.5-10.0)
[2023-07-03 05:42] LABS: Anion Gap 6 mmol/L (8-16); Blood Urea Nitrogen 9 mg/dL (7-17); Calcium 7.9 mg/dL (8.4-10.2); Carbon Dioxide 24 mmol/L (22-30); Chloride 108 mmol/L (98-107); Estimated CRCL calculation 86 ml/min; Estimated Glomerular Filt Rate > 60; Glucose 111 mg/dL (65-110); Magnesium 1.9 mg/dL (1.6-2.3); Potassium 3.4 mmol/L (3.4-5.0); Sodium 138 mmol/L (137-145)
[2023-07-03] MEDS: SODIUM CHLORIDE 0.9% IV 1,000 ML 125 ML IV CONT ×2 (06:19→14:43)
[2023-07-03] MEDS: ENOXAPARIN 40 MG/0.4 ML SYRINGE SUB-Q (08:21)
[2023-07-03 10:19] LABS: Device NON-REBREATHER MASK; Modified Allen's Test Pass; Site Drawn RIGHT RADIAL
--- NOTE | 2023-07-03 10:49 | PM.IMPN ---
Progress Note: A&P Assessment and Plan (1) Influenza A: Onset Date: ~06/29/23 Code(s): J10.1 - Influenza due to other identified influenza virus with other respiratory manifestations Status: Acute Assessment and Plan: IV fluids, supportive care (2) Hypoxia: Code(s): R09.02 - Hypoxemia Status: Acute Assessment and Plan: Acute hypoxic respiratory failure 2/2 to Flu A and aspiration pneumonia/pneumonitis. Cont HFNC and wean as tolerated. Cont pulse ox and telemetry. Will cover with Zosyn. Nebs have been scheduled we can keep that for now. (3) Pneumonia: Code(s): J18.9 - Pneumonia, unspecified organism Status: Acute Assessment and Plan: Suspect aspiration pneumonia, Zosyn initiated 06/24, if she does not improve would add Flagyl (4) Syncope: Code(s): R55 - Syncope and collapse Status: Acute Assessment and Plan: Suspect vasovagal in etiology, multifactorial, reassess after hydration and improvement of infection (5) N&V (nausea and vomiting): Code(s): R11.2 - Nausea with vomiting, unspecified Status: Acute Assessment and Plan: Multifactorial, improving PPI (6) Right knee pain: Code(s): M25.561 - Pain in right knee Status: Acute Assessment and Plan: she complains of generalized right leg pain and instability. She was running to take a picture 2 weeks ago and fell and hit her right knee. She reports a popping sound of the right knee. PT ordered for right knee instability s/p fall 2 weeks ago. Pt reports Xray at urgent care 2 weeks prior was negative for fracture. Consider repeat XR or MRI. (7) Chest pain: Code(s): R07.9 - Chest pain, unspecified Status: Acute Assessment and Plan: She had a sore chest after vomiting and coughing aggressively. It's now resolved. Check troponin although this is likely non cardiac. EKG w/o acute ischemia. Her sinus tachycardia is likely 2/2 above. Volume resuscitate with NS @ 100ml/hr. (8) Alcohol abuse: Code(s): F10.10 - Alcohol abuse, uncomplicated Status: Acute Assessment and Plan: Ethyl alcohol level less than 10 at admission, no CIWA necessary, monitor Plan DVT prophylaxis with Lovenox GI prophylaxis with PPI Code status full code Subjective Date/time seen: 07/03/23 10:49 Interval history: 58-year-old female with history of alcohol abuse, breast cancer, colon cancer is presenting with shortness of breath and being treated for influenza a as well as suspected aspiration pneumonia. No overnight events noted. No chest pain. No vomiting or diarrhea. No fevers or chills. C/o nausea and weakness, feels a little better than yesterday. Still with some SOB. Review of Systems Review of Systems: 12 point review of systems was assessed and was negative except as noted in the HPI Exam Narrative: General: No acute distress, alert and oriented per baseline HEENT: Atraumatic, normocephalic, mucous membranes moist CV: Regular rate and rhythm, S1, S2 Lungs: Coarse BS, diminished at bases, no wheezes Abdomen: Soft, nontender, nondistended Extremities: Normal to inspection Skin: No rashes noted, no lesions or wounds seen Psych: Euthymic, normal affect Objective Data Vital Signs Vital Signs: Vital Signs - 24 hr 07/02/23 15:05 07/02/23 15:23 07/02/23 15:23 Temperature 98.5 F Pulse Rate 104 H Respiratory Rate 20 Blood Pressure 115/65 Pulse Oximetry 74 L 72 L 80 L Oxygen Delivery Room Air Room Air Nasal Cannula Oxygen Flow Rate 6 Fraction of Inspired Oxygen 07/02/23 15:23 07/02/23 15:39 07/02/23 15:51 Temperature Pulse Rate 109 H 107 H Respiratory Rate 28 H 26 H Blood Pressure 110/72 Pulse Oximetry 90 94 Oxygen Delivery Non-Rebreather Mask Oxygen Flow Rate 15 Fraction of Inspired Oxygen 07/02/23 16:14 07/02/23 16:19 07/02/23 16:01 Temp
[2023-07-03] MEDS: PANTOPRAZOLE 40 MG TABLET PO (11:40)
[2023-07-03] MEDS: ONDANSETRON INJ 4 MG/2 ML VIAL IV PUSH ×2 (14:40→17:41)
[2023-07-03] MEDS: AZITHROMYCIN 500 MG/NS 250 ML 500 MG/250 ML BAG 250 MG IVPB (17:26)
[2023-07-03] MEDS: PROMETHAZINE HCL 25 MG/ML AMPUL 12.5 MG IV PUSH (20:34)
[2023-07-03] MEDS: SENNA/DOCUSATE SODIUM TABLET 1 TAB PO (22:30)
--- NOTE | 2023-07-03 22:30 | PC.NURSE ---
Patient refused the Miralax, wanted to try the senna/Dulcolax.
[2023-07-04] VITALS (24 sets, daily range): BP systolic 92–139; BP diastolic 51–88; PULSE 79–108; RESP 16–22; TEMP 36.6–38.3; O2SAT 93–97
[2023-07-04] MEDS: SODIUM CHLORIDE 0.9% IV 1,000 ML 125 ML IV CONT (01:01)
[2023-07-04] MEDS: ONDANSETRON INJ 4 MG/2 ML VIAL IV PUSH ×2 (01:04→10:03)
[2023-07-04] MEDS: PROMETHAZINE HCL 25 MG/ML AMPUL 12.5 MG IV PUSH ×3 (02:19→10:59)
[2023-07-04] MEDS: ALBUTEROL SULFATE NEB 2.5 MG/3 ML INH INHALATION ×4 (03:42→21:22)
[2023-07-04] MEDS: IPRATROPIUM BR 0.02% INH SOLN 0.5 MG/2.5 ML VIAL INHALATION ×4 (03:43→21:22)
[2023-07-04] MEDS: PIPERACILLN/TAZ 3.375GM/NS50ML 3.375 GM/50 ML BAG IVPB ×4 (03:52→20:19)
[2023-07-04] MEDS: ACETAMINOPHEN 500 MG TABLET 1000 MG PO (06:51)
--- NOTE | 2023-07-04 09:56 | PM.IMPN ---
Progress Note: A&P Assessment and Plan (1) Influenza A: Onset Date: ~06/29/23 Code(s): J10.1 - Influenza due to other identified influenza virus with other respiratory manifestations Status: Acute Assessment and Plan: Supportive care, off IVF, monitor on po intake, wean oxygen as able (2) Hypoxia: Code(s): R09.02 - Hypoxemia Status: Acute Assessment and Plan: Acute hypoxic respiratory failure 2/2 to Flu A and aspiration pneumonia/pneumonitis. Cont HFNC and wean as tolerated. Cont pulse ox and telemetry. Will cover with Zosyn. Nebs have been scheduled we can keep that for now. 07/04: weaned to 2L, home O2 eval ordered for 07/05, anticipate d/c home tomorrow, hopefully off oxygen, but might need some for a bit at home (3) Pneumonia: Code(s): J18.9 - Pneumonia, unspecified organism Status: Acute Assessment and Plan: Suspect aspiration pneumonia, Zosyn initiated 06/24, if she does not improve would add Flagyl 07/04: check CXR, if looks better, transition to po abx in anticipation for d/c tomorrow (4) Syncope: Code(s): R55 - Syncope and collapse Status: Acute Assessment and Plan: Suspect vasovagal in etiology, multifactorial, reassess after hydration and improvement of infection resolved (5) N&V (nausea and vomiting): Code(s): R11.2 - Nausea with vomiting, unspecified Status: Acute Assessment and Plan: Multifactorial, improving PPI (6) Right knee pain: Code(s): M25.561 - Pain in right knee Status: Acute Assessment and Plan: she complains of generalized right leg pain and instability. She was running to take a picture 2 weeks ago and fell and hit her right knee. She reports a popping sound of the right knee. PT ordered for right knee instability s/p fall 2 weeks ago. Pt reports Xray at urgent care 2 weeks prior was negative for fracture. Consider repeat XR or MRI outpatient (7) Chest pain: Code(s): R07.9 - Chest pain, unspecified Status: Acute Assessment and Plan: She had a sore chest after vomiting and coughing aggressively. Check troponin although this is likely non cardiac. EKG w/o acute ischemia. Her sinus tachycardia is likely 2/2 above. Volume resuscitate with NS @ 100ml/hr. 07/04: improving, likely msk in etiology, d/c IVF for now, monitor on po intake (8) Alcohol abuse: Code(s): F10.10 - Alcohol abuse, uncomplicated Status: Acute Assessment and Plan: Ethyl alcohol level less than 10 at admission, no CIWA necessary, monitor Plan DVT prophylaxis with Lovenox GI prophylaxis with PPI Code status full code Subjective Date/time seen: 07/04/23 09:56 Interval history: 58-year-old female with history of alcohol abuse, breast cancer, colon cancer is presenting with shortness of breath and being treated for influenza a as well as suspected aspiration pneumonia. No overnight events noted. No chest pain. No vomiting or diarrhea. No fevers or chills. Nausea much improved. Shortness of breath improved. Eager to go home soon. Still quite weak. Review of Systems Review of Systems: 12 point review of systems was assessed and was negative except as noted in the HPI Exam Narrative: General: No acute distress, alert and oriented per baseline HEENT: Atraumatic, normocephalic, mucous membranes moist CV: Regular rate and rhythm, S1, S2 Lungs: Coarse BS, diminished at bases, no wheezes Abdomen: Soft, nontender, nondistended Extremities: Normal to inspection Skin: No rashes noted, no lesions or wounds seen Psych: Euthymic, normal affect Objective Data Vital Signs Vital Signs: Vital Signs - 24 hr 07/03/23 11:43 07/03/23 12:00 07/03/23 12:00 Temperature 98.2 F Pulse Rate 90 78 90 Respiratory Rate 20 20 Blood Pressure 105/65 Pulse Oximetry 100 100 Oxygen Delivery High Flow Therapy with Na Oxy
[2023-07-04] MEDS: ASCORBIC ACID 500 MG TABLET 1000 MG PO (09:57)
[2023-07-04] MEDS: ENOXAPARIN 40 MG/0.4 ML SYRINGE SUB-Q (09:57)
[2023-07-04] MEDS: MAGNESIUM OXIDE 400 MG TABLET PO (09:58)
[2023-07-04] MEDS: PANTOPRAZOLE 40 MG TABLET PO (09:58)
[2023-07-04] MEDS: AZITHROMYCIN 500 MG/NS 250 ML 500 MG/250 ML BAG 250 MG IVPB (18:00)
[2023-07-05] VITALS (19 sets, daily range): BP systolic 96–139; BP diastolic 51–73; PULSE 72–97; RESP 12–18; TEMP 36.1–37.2; O2SAT 90–97
[2023-07-05] MEDS: ACETAMINOPHEN 500 MG TABLET 1000 MG PO (00:06)
[2023-07-05] MEDS: SALINE 0.65% NAS SOLN 44 ML BTL 1 SPRAY NASAL (00:09)
[2023-07-05] MEDS: ALBUTEROL SULFATE NEB 2.5 MG/3 ML INH INHALATION ×4 (03:14→20:35)
[2023-07-05] MEDS: IPRATROPIUM BR 0.02% INH SOLN 0.5 MG/2.5 ML VIAL INHALATION ×4 (03:16→20:35)
[2023-07-05] MEDS: PIPERACILLN/TAZ 3.375GM/NS50ML 3.375 GM/50 ML BAG IVPB ×2 (03:43→09:08)
[2023-07-05] MEDS: ASCORBIC ACID 500 MG TABLET 1000 MG PO (09:08)
[2023-07-05] MEDS: MAGNESIUM OXIDE 400 MG TABLET PO (09:08)
[2023-07-05] MEDS: ENOXAPARIN 40 MG/0.4 ML SYRINGE SUB-Q (09:08)
[2023-07-05] MEDS: PANTOPRAZOLE 40 MG TABLET PO (09:08)
--- NOTE | 2023-07-05 12:32 | PM.IMPN ---
Progress Note: A&P Assessment and Plan (1) Influenza A: Onset Date: ~06/29/23 Code(s): J10.1 - Influenza due to other identified influenza virus with other respiratory manifestations Status: Acute Assessment and Plan: Supportive care, off IVF, monitor on po intake, wean oxygen as able home o2 eval today (2) Hypoxia: Code(s): R09.02 - Hypoxemia Status: Acute Assessment and Plan: Acute hypoxic respiratory failure 2/2 to Flu A and aspiration pneumonia/pneumonitis. Cont HFNC and wean as tolerated. Cont pulse ox and telemetry. Will cover with Zosyn. Nebs have been scheduled we can keep that for now. 07/04: weaned to 2L, home O2 eval ordered for 07/05, anticipate d/c home tomorrow, hopefully off oxygen, but might need some for a bit at home (3) Pneumonia: Code(s): J18.9 - Pneumonia, unspecified organism Status: Acute Assessment and Plan: Suspect aspiration pneumonia, Zosyn initiated 06/24, if she does not improve would add Flagyl transition to po abx (4) Syncope: Code(s): R55 - Syncope and collapse Status: Acute Assessment and Plan: Suspect vasovagal in etiology, multifactorial, reassess after hydration and improvement of infection resolved (5) N&V (nausea and vomiting): Code(s): R11.2 - Nausea with vomiting, unspecified Status: Acute Assessment and Plan: Multifactorial, improving PPI (6) Right knee pain: Code(s): M25.561 - Pain in right knee Status: Acute Assessment and Plan: she complains of generalized right leg pain and instability. She was running to take a picture 2 weeks ago and fell and hit her right knee. She reports a popping sound of the right knee. PT ordered for right knee instability s/p fall 2 weeks ago. Pt reports Xray at urgent care 2 weeks prior was negative for fracture. Consider repeat XR or MRI outpatient (7) Chest pain: Code(s): R07.9 - Chest pain, unspecified Status: Acute Assessment and Plan: She had a sore chest after vomiting and coughing aggressively. Check troponin although this is likely non cardiac. EKG w/o acute ischemia. Her sinus tachycardia is likely 2/2 above. resolved (8) Alcohol abuse: Code(s): F10.10 - Alcohol abuse, uncomplicated Status: Acute Assessment and Plan: Ethyl alcohol level less than 10 at admission, no CIWA necessary, monitor Plan DVT prophylaxis with Lovenox GI prophylaxis with PPI Code status full code Subjective Date/time seen: 07/05/23 12:32 Interval history: 58-year-old female with history of alcohol abuse, breast cancer, colon cancer is presenting with shortness of breath and being treated for influenza a as well as suspected aspiration pneumonia. No overnight events noted. No chest pain. No vomiting or diarrhea. No fevers or chills. Nausea much improved. Shortness of breath improved. Eager to go home soon. Feels much better than yesterday, eager to get off oxygen. Review of Systems Review of Systems: 12 point review of systems was assessed and was negative except as noted in the HPI Exam Narrative: General: No acute distress, alert and oriented per baseline HEENT: Atraumatic, normocephalic, mucous membranes moist CV: Regular rate and rhythm, S1, S2 Lungs: Coarse BS, diminished at bases, no wheezes Abdomen: Soft, nontender, nondistended Extremities: Normal to inspection Skin: No rashes noted, no lesions or wounds seen Psych: Euthymic, normal affect Objective Data Vital Signs Vital Signs: Vital Signs - 24 hr 07/04/23 14:20 07/04/23 14:42 07/04/23 16:00 Temperature Pulse Rate 86 99 99 Respiratory Rate 18 Blood Pressure Pulse Oximetry 97 Oxygen Delivery Nasal Cannula Oxygen Flow Rate 2 Fraction of Inspired Oxygen 40 07/04/23 14:00 07/04/23 16:00 07/04/23 16:00 Temperature 98.3 F Pulse Rate 95 95 80 R
[2023-07-05] MEDS: AMOXICILLIN/CLAVULANATE K 875-125 MG TAB 1 TABLET PO (20:45)
[2023-07-06] VITALS (10 sets, daily range): BP systolic 119; BP diastolic 75; PULSE 69–89; RESP 12–20; TEMP 36.1; O2SAT 92–95
[2023-07-06] MEDS: ACETAMINOPHEN 500 MG TABLET 1000 MG PO (00:42)
[2023-07-06] MEDS: IPRATROPIUM BR 0.02% INH SOLN 0.5 MG/2.5 ML VIAL INHALATION ×2 (02:30→08:04)
[2023-07-06] MEDS: ALBUTEROL SULFATE NEB 2.5 MG/3 ML INH INHALATION ×2 (02:30→08:04)
[2023-07-06] MEDS: AMOXICILLIN/CLAVULANATE K 875-125 MG TAB 1 TABLET PO (09:37)
[2023-07-06] MEDS: AZITHROMYCIN 250 MG TABLET PO (09:37)
[2023-07-06] MEDS: PANTOPRAZOLE 40 MG TABLET PO (09:37)
[2023-07-06] MEDS: MAGNESIUM OXIDE 400 MG TABLET PO (09:37)
[2023-07-06] MEDS: ASCORBIC ACID 500 MG TABLET 1000 MG PO (09:38)
--- NOTE | 2023-07-06 12:54 | HOMEO2EVAL ---
Evaluation was performed at [facility] Home Oxygen Evaluation RC: Home Oxygen (O2) Evaluation Start: 07/05/23 05:00 Freq: ONCE Status: Active Protocol: RPE Activity Type Activity Date Activity User E-sign Co-sign Detail Recorded Client Recorded Date Recorded By Document 07/06/23 12:40 KAG [email or web address] 07/06/23 12:50 KAG Document 07/06/23 12:45 KAG [email or web address] 07/06/23 12:51 KAG 07/06/23 07/06/23 12:40 12:45 Home O2 Evaluation [Oxygen] -Test Phase Resting Exercise -Oxygen Delivery Room Air Room Air [Pulse Oximetry] -Pulse Oximetry (90-100 %) 95 93 [Pulse Rate] -Pulse Rate (60-100 beats/min) 84 89 [Evaluation] -Activity Tolerance Excellent [Exercise] -Ambulation Distance (feet) 80 -Ambulation Distance (meters) 24.38 [Comments] -Home Oxygen Evaluation Comments Pt walked up and down the hallways and tolerated excerise very well with no shortness of breath. [Charges] -Evaluation Charges O2 Evaluation by CLINT
--- NOTE | 2023-07-06 12:55 | PCRCNOTE ---
Home Oxygen Evaluation completed by RT. Pt does not need oxygen with rest or with activity. RN notified of results.
--- NOTE | 2023-07-06 14:34 | PM.DS ---
DS: Admitting Diagnosis Discharge Date 07/06/23 Admitting Diagnosis sob DS: Discharge Diagnosis Discharge Diagnosis (1) Influenza A: Onset Date: ~06/29/23 Code(s): J10.1 - Influenza due to other identified influenza virus with other respiratory manifestations Status: Acute Assessment and Plan: Supportive care, off IVF, monitor on po intake, wean oxygen as able home o2 eval today (2) Hypoxia: Code(s): R09.02 - Hypoxemia Status: Acute Assessment and Plan: Acute hypoxic respiratory failure 2/2 to Flu A and aspiration pneumonia/pneumonitis. Cont HFNC and wean as tolerated. Cont pulse ox and telemetry. Will cover with Zosyn. Nebs have been scheduled we can keep that for now. 07/04: weaned to 2L, home O2 eval ordered for 07/05, anticipate d/c home tomorrow, hopefully off oxygen, but might need some for a bit at home (3) Pneumonia: Code(s): J18.9 - Pneumonia, unspecified organism Status: Acute Assessment and Plan: Suspect aspiration pneumonia, Zosyn initiated 06/24, if she does not improve would add Flagyl transition to po abx (4) Syncope: Code(s): R55 - Syncope and collapse Status: Acute Assessment and Plan: Suspect vasovagal in etiology, multifactorial, reassess after hydration and improvement of infection resolved (5) N&V (nausea and vomiting): Code(s): R11.2 - Nausea with vomiting, unspecified Status: Acute Assessment and Plan: Multifactorial, improving PPI (6) Right knee pain: Code(s): M25.561 - Pain in right knee Status: Acute Assessment and Plan: she complains of generalized right leg pain and instability. She was running to take a picture 2 weeks ago and fell and hit her right knee. She reports a popping sound of the right knee. PT ordered for right knee instability s/p fall 2 weeks ago. Pt reports Xray at urgent care 2 weeks prior was negative for fracture. Consider repeat XR or MRI outpatient (7) Chest pain: Code(s): R07.9 - Chest pain, unspecified Status: Acute Assessment and Plan: She had a sore chest after vomiting and coughing aggressively. Check troponin although this is likely non cardiac. EKG w/o acute ischemia. Her sinus tachycardia is likely 2/2 above. resolved (8) Alcohol abuse: Code(s): F10.10 - Alcohol abuse, uncomplicated Status: Acute Assessment and Plan: Ethyl alcohol level less than 10 at admission, no CIWA necessary, monitor Plan DVT prophylaxis with Lovenox GI prophylaxis with PPI Code status full code DS: Summary Hospital Course Hospital Course: 58-year-old female with history of alcohol abuse, breast cancer, colon cancer is presenting with shortness of breath and being treated for influenza a as well as suspected aspiration pneumonia. Patient was found to have influenza a and suspected aspiration pneumonia, she responded to supportive care and antibiotics. All symptoms resolved and she was weaned to room air. Please see above and med rec for details. She was discharged in stable condition with close outpatient follow-up. Time Spent with Patient Time attestation: Total time spent providing and/or coordinating discharge services: Exam Narrative: General: No acute distress, alert and oriented per baseline HEENT: Atraumatic, normocephalic, mucous membranes moist CV: Regular rate and rhythm, S1, S2 Lungs: Coarse BS, diminished at bases, no wheezes Abdomen: Soft, nontender, nondistended Extremities: Normal to inspection Skin: No rashes noted, no lesions or wounds seen Psych: Euthymic, normal affect DS: Data Data Completed and Pending Labs on day of discharge: Preliminary micro results at discharge 07/02/23 18:12 Blood Culture - Preliminary Blood 07/02/23 18:18 Blood Culture - Preliminary Blood Discharge Plan Discharge Attending physician on discharge: Akiko
== END 2023-07-06 15:07 | disposition home or self-care (01) | DRG 177 ==
LOC: ANHED 17:08 → ANHIMU 17:39 → ANH2MED 07-05 14:16
PROVIDERS: General Practice; Admitting Provider Family Medicine; Emergency Provider Emergency Medicine; PCP Family Medicine; Visit Provider Student in an Organized Health Care Education/Training Program
DX: J69.0 Pneumonitis due to inhalation of food and vomit (principal); J96.01 Acute respiratory failure with hypoxia; J10.1 Influenza due to other identified influenza virus with other respiratory manifestations; R55 Syncope and collapse; M25.561 Pain in right knee; W18.39XA Other fall on same level, initial encounter; R07.89 Other chest pain; F10.10 Alcohol abuse, uncomplicated; Z20.822 Contact with and (suspected) exposure to COVID-19; Z85.9 Personal history of malignant neoplasm, unspecified; Z87.891 Personal history of nicotine dependence; Z85.3 Personal history of malignant neoplasm of breast
CPT/HCPCS: 36415; 36600; 71045; 71275; 80048; 80053; 80307; 81001; 82375; 82805; 83050; 83605; 83735; 83880; 84145; 84484; 85025; 85610; 85730; 87040; 87637; 93005; 93971; 94618; 94640; 96365; 96367; 96375; 97161; 99285; A9270; G0378; J0456; J0696; J1650; J2405; J2543; J2550; J2765; J7030; J7040; Q9967

== ENCOUNTER 2023-10-26 01:14 | Day surgery (SDC) | payer BC, SELFPAY ==
[2023-07-20 08:59] VITALS: BMI 29.6
--- NOTE | 2023-08-06 14:53 | PC.NURSE ---
Pre op interview completed 07/20/2023 for colonoscopy. Pt called updated with new rescheduled date and time.
[2023-10-26 06:53] VITALS: BP 117/80; PULSE 74; RESP 16; TEMP 36.1; O2SAT 100
[2023-10-26] MEDS: LACTATED RINGERS 1,000 ML 150 ML IV CONT (07:07)
--- NOTE | 2023-10-26 07:32 | WPDANESEPPF ---
Anes - Initial Pre Proc Eval Procedure: Operation Date: 10/26/23 08:00 Proposed Procedures p Colonoscopy - Ian Romero MD Date/Time: 10/26/23 07:32 Surgeon: Ian Romero MD Pre Op Diagnosis: hx of colon polyps Patient Data Age: 58 Gender: F Height: 1.66 m Weight: 83.8 kg Last Vital Signs Temp 97.0 F L 10/26/23 06:53 Pulse 74 10/26/23 06:53 Resp 16 10/26/23 06:53 BP 117/80 10/26/23 06:53 Pulse Ox 100 10/26/23 06:53 O2 Del Method Room Air 10/26/23 06:53 Allergies Allergy/AdvReac Type Severity Reaction Status Date / Time No Known Allergies Allergy Verified 10/26/23 06:51 Home Medications Medication Instructions Recorded Confirmed Type ascorbic acid (vitamin C) 1,000 mg 1 g PO DAILY 07/03/23 10/26/23 History tablet coenzyme Q10 100 mg capsule 100 mg PO DAILY 07/03/23 10/26/23 History cranberry conc 250 mg-vit C 30 1 tablet PO DAILY 07/03/23 10/26/23 History mg-Bacillus coagulans 3.5 mg tablet (Cranberry Urinary Tract Health) magnesium 200 mg tablet 400 mg PO DAILY 07/03/23 10/26/23 History mv-mn-iron fum-folic acid-omega 3, 1 cap PO DAILY 07/03/23 10/26/23 History 6, 9 no.3 18 mg-600 mcg capsule protein hydrolys-collagen 20 1 ea PO DAILY 07/03/23 10/26/23 History gram-120 kcal/37.5 mL oral liquid packet ipratropium 20 mcg-albuterol 100 1 puff inhalation Q4H PRN 07/06/23 10/26/23 Rx mcg/actuation mist for inhalation shortness of breath or wheezing #4 (Combivent Respimat) grams promethazine 25 mg tablet 25 mg PO QID PRN nausea and 07/08/23 10/26/23 Rx vomiting #20 tabs loratadine 10 mg tablet (Claritin) 10 mg PO DAILY 07/20/23 10/26/23 History valacyclovir 1 gram tablet 1,000 mg PO Q12H #10 tabs 09/28/23 10/26/23 Rx Patient hx anesthesia problems: none Family hx anesthesia problems: none Results Review: All pre-operative results and documents have been reviewed as part of the pre-operative evaluation. [facility] Past Medical History Medical History (Updated 10/26/23 @ 19:19 by Cristiano Carlson MD) Abnormal colonoscopy Abscess Alcohol abuse Alopecia BMI 26.0-26.9,adult BMI 30.0-30.9,adult Breast cancer screening by mammogram Chest pain Chronic anxiety Chronic rhinitis Closed fracture of distal end of left radius (03/27/22) Colon cancer (04/30/20) polyp with well- Differentiated adenocarcinoma removed April 2017 with normal colonoscopy August 2017. Colonoscopy 04/30/2020 normal with recheck in 3 years. Colon polyps Colonoscopy 10/26/2023 with 4 polyps of the transverse colon and 1 polyp of the rectum with recheck in 3 years. Encounter for wellness examination in adult Epistaxis, recurrent (~07/2021) Fever blister Obesity (BMI 30.0-34.9) Overweight (BMI 25.0-29.9) Personal history of colonic polyps Pharyngitis Right knee pain UTI (urinary tract infection) Weakness Surgical History Surgical History History of colonoscopy Family History Family History (Updated 07/03/23 @ 01:55 by Allie Teague RN) Grandparent Diabetes mellitus Acute myocardial infarction Mother Family history of cardiac disorder Father Cancer of blood vessel Social History Social History Smoking packs per day: 0.5 Smoking cigarettes per day: 10.0 Years smoked: 30 Smoking pack-years: 15.00 Smoking status: Former smoker Tobacco type: cigarettes Smoking end date: 07/06/05 Alcohol intake: former Substance use: never Substance use type: does not use Last use: 8 YEARS AGO Do You Feel Safe in your Home?: Yes Lack of Transportation: No Lack of Food: Never True Current Housing: I Have Housing Concerned About Future Housing: No Difficulty Paying Gas/Electric Bills: No Difficulty Paying for Meds: No Currently Unemployed: No Education: High School Diploma/GE
--- NOTE | 2023-10-26 07:52 | PM.HPGS ---
History of Present Illness History of Present Illness Consent: Risks, benefits, and alternatives have been discussed and questions answered. Patient agrees to proceed with procedure. Chief complaint: hx of colon polyps Narrative: Jocelyne Costa is a 58 year old female here for colonoscopy, had malignant polyp which was removed in April 2017.? Was well differentiated adenocarcinoma invading the submucosa but not involving the resection margin.? Patient did have a follow-up colonoscopy August 2017 and 2019 without residual lesion. Review of Systems Review of Systems: All systems reviewed & are unremarkable except as noted in HPI and below PMFSH Past Medical History Medical History (Updated 09/28/23 @ 16:54 by Cristiano Carlson MD) Abnormal colonoscopy Abscess Alcohol abuse Alopecia BMI 26.0-26.9,adult BMI 30.0-30.9,adult Breast cancer screening by mammogram Chest pain Chronic anxiety Chronic rhinitis Closed fracture of distal end of left radius (03/27/22) Colon cancer (04/30/20) polyp with well- Differentiated adenocarcinoma removed April 2017 with normal colonoscopy August 2017. Colonoscopy 04/30/2020 normal with recheck in 3 years. Colon polyps Encounter for wellness examination in adult Epistaxis, recurrent (~07/2021) Fever blister Obesity (BMI 30.0-34.9) Overweight (BMI 25.0-29.9) Personal history of colonic polyps Pharyngitis Right knee pain UTI (urinary tract infection) Weakness Surgical History Surgical History History of colonoscopy Family History Family History (Updated 07/03/23 @ 01:55 by Allie Teague RN) Grandparent Diabetes mellitus Acute myocardial infarction Mother Family history of cardiac disorder Father Cancer of blood vessel Social History Social History Smoking packs per day: 0.5 Smoking cigarettes per day: 10.0 Years smoked: 30 Smoking pack-years: 15.00 Smoking status: Former smoker Tobacco type: cigarettes Smoking end date: 07/06/05 Alcohol intake: former Substance use: never Substance use type: does not use Last use: 8 YEARS AGO Do You Feel Safe in your Home?: Yes Lack of Transportation: No Lack of Food: Never True Current Housing: I Have Housing Concerned About Future Housing: No Difficulty Paying Gas/Electric Bills: No Difficulty Paying for Meds: No Currently Unemployed: No Education: High School Diploma/GED Difficulty w/ Childcare or Family Care: No Living arrangements: with family Occupation/Education: occupation Gender identity (if verbalized by the patient): Female Sexual Orientation (if Verbalized by the Patient): Straight or Heterosexual Spiritual care concerns: No Meds Home Medications and Allergies Home Medications Medication Instructions Recorded Confirmed Type ascorbic acid (vitamin C) 1,000 mg 1 g PO DAILY 07/03/23 10/26/23 History tablet coenzyme Q10 100 mg capsule 100 mg PO DAILY 07/03/23 10/26/23 History cranberry conc 250 mg-vit C 30 1 tablet PO DAILY 07/03/23 10/26/23 History mg-Bacillus coagulans 3.5 mg tablet (Cranberry Urinary Tract Health) magnesium 200 mg tablet 400 mg PO DAILY 07/03/23 10/26/23 History mv-mn-iron fum-folic acid-omega 3, 1 cap PO DAILY 07/03/23 10/26/23 History 6, 9 no.3 18 mg-600 mcg capsule protein hydrolys-collagen 20 1 ea PO DAILY 07/03/23 10/26/23 History gram-120 kcal/37.5 mL oral liquid packet ipratropium 20 mcg-albuterol 100 1 puff inhalation Q4H PRN 07/06/23 10/26/23 Rx mcg/actuation mist for inhalation shortness of breath or wheezing #4 (Combivent Respimat) grams promethazine 25 mg tablet 25 mg PO QID PRN nausea and 07/08/23 10/26/23 Rx vomiting #20 tabs loratadine 10 mg tablet (Claritin) 10 mg PO DAILY 07/20/23 10/26/23 History valacyclovir 1 gram tablet 1,000 mg PO Q12H #10 tabs 09/04
[2023-10-26 08:18] VITALS: BP 90/62; PULSE 64; RESP 16; O2SAT 100
[2023-10-26 08:28] VITALS: BP 103/74; PULSE 60; RESP 16; O2SAT 100
[2023-10-26 08:47] VITALS: BP 95/72; PULSE 60; RESP 16; O2SAT 100
== END 2023-10-26 09:00 | disposition home or self-care (01) ==
PROVIDERS: PCP Family Medicine; Visit Provider Internal Medicine Gastroenterology
PROC: 0DJD8ZZ Inspection of Lower Intestinal Tract, Via Natural or Artificial Opening Endoscopic (ICD-10-PCS; CPT 45378; principal; 2023-10-26 08:00)
DX: Z12.11 Encounter for screening for malignant neoplasm of colon (principal); D12.3 Benign neoplasm of transverse colon; K63.5 Polyp of colon; K62.1 Rectal polyp; K64.8 Other hemorrhoids; F41.9 Anxiety disorder, unspecified; J31.0 Chronic rhinitis; Z87.891 Personal history of nicotine dependence; Z85.038 Personal history of other malignant neoplasm of large intestine; Z80.8 Family history of malignant neoplasm of other organs or systems; Z82.49 Family history of ischemic heart disease and other diseases of the circulatory system
CPT/HCPCS: 45385; 88305; J2704; J7120

== ENCOUNTER 2023-11-12 13:17 | Emergency (ER) | payer BC, SELFPAY ==
--- NOTE | ~2023-11-12 | XR_ITS ---
EXAMINATION: XR lumbar spine 2-3V DATE: 11/12/2023 16:39 INDICATION: Low back pain. TECHNIQUE: 3 views of lumbar spine were obtained. COMPARISON: None. FINDINGS: There is 7 degrees levocurvature of lumbar spine. There is mild chronic anterior wedging of T12 vertebral body. There is severely decreased disc height at L1-L2, mildly decreased disc height a t L2-L3, severely decreased disc height at L3-L4, and moderately decreased disc height at L4-L5 and L 5-S1. There is multilevel severe facet joint osteoarthritis. IMPRESSION: 1. Severe lumbar spondylosis. Reviewed, dictated and finalized at location A.
--- NOTE | ~2023-11-12 | CT_ITS ---
EXAMINATION: CT abd pelvis lumbar w con DATE: 11/12/2023 16:47 INDICATION: Electric shock sensation to the lower back post fall several days prior. TECHNIQUE: Computed tomography (CT) of the abdomen, pelvis and lumbar spine was performed with 100 mL Omnipaque-350 intravenous contrast. Automated exposure control and iterative reconstruction techniqu e were employed. The dose-length product was 880.11 mGy-cm. COMPARISON: CT dated 04/25/2017 and MRI dated 05/03/2017 FINDINGS: Abdomen and pelvis: Mild bibasilar atelectasis. Heart size is normal. No pericardial or pleural effusion. 1.2 cm low-atte nuation cyst in the right hepatic lobe. There is an additional 2.1 cm heterogeneously enhancing lesio n at the dome of the liver and more caudal 8 mm hypodense lesion in the right hepatic lobe which are both seen on intervening MRI with enhancement characteristics most consistent with hemangiomas. Gallb ladder, spleen, pancreas, bilateral adrenal glands and left kidney are normal. 1.9 cm heterogeneously enhancing mass at the anterior upper pole of the right kidney concerning for renal cell carcinoma. B owels including the appendix are normal. Bladder, uterus and bilateral adnexa are unremarkable. No fr ee intraperitoneal gas or fluid. No pathologically enlarged abdominal or pelvic lymphadenopathy. Lumbar spine: Alignment is normal. Vertebral body heights are normal. Small Schmorl's nodes along the inferior endp late of L1 and superior endplate of L5. Minimally displaced fracture of the right transverse process of L1. No other acute fractures identified. Moderate to severe disc height loss with Modic type III s clerotic endplate changes at L3-L4. Moderate disc height loss at L4-L5. Mild disc height loss at L1-L 2, L2-L3, L5-S1 and a few levels in the lower thoracic spine. Disc bulges resulting in multilevel mil d central canal stenosis at L1-L2 through L5-S1. Moderate facet osteoarthritis on the right at L3-L4 and bilaterally at L4-L5 and L5-S1 and mild facet osteoarthritis the remaining lumbar levels. This co ntributes to mild neural foraminal stenosis bilaterally but with left-sided predominance at L1-L2 thr ough L5-S1. IMPRESSION: 1. 1.9 cm heterogeneously enhancing right renal mass concerning for renal cell carcinoma. 2. Minimally displaced fracture at the right transverse process of L1. Moderate to severe lumbar spon dylosis with no other acute osseous abnormality. Reviewed, dictated and finalized at location A. IMPRESSION: 1. 1.9 cm heterogeneously enhancing right renal mass concerning for renal cell carcinoma. 2. Minimally displaced fracture at the right transverse process of L1. Moderate to severe lumbar spondylosis with no other acute osseous abnormality.
[2023-11-12 13:35] VITALS: BP 150/91; PULSE 67; RESP 16; TEMP 36.4; O2SAT 100
--- NOTE | 2023-11-12 15:04 | ED.GENADULT ---
HPI - General Adult General Chief complaint: Back Pain/Injury <Susie Ohara, [employer]T - Last Filed: 11/12/23 15:14> Stated complaint: back pain r/t fall on thursday <Susie Ohara, [employer] - Last Filed: 11/12/23 15:14> Time Seen by Provider: 11/12/23 15:04 <Susie Arias November, [employer] - Last Filed: 11/12/23 15:14> Focused HPI: Jocelyne Costa is a 58 y/o female who present with reports of having a fall going down two stairs 2 days ago hitting her right lower back on the door spring. She states that she had pain initially but has become much worse. Hx of bulging lumbar discs to her lumbar spine/ No numbness /tingling/ no loss of bowel or bladder No saddle paraesthesia + bruising to the right lower back GENERAL: well-nourished, and in no acute distress. HEAD: Normocephalic, atraumatic. CHEST: Clear to auscultation. ?No respiratory distress. HEART: Regular rate and rhythm.? NEURO: ?Alert and oriented x3. Patient screened in triage and initial orders placed.? ?Additional care and disposition to be based upon?diagnostic testing and treatment. <Susie Ohara, [employer] - Last Filed: 11/12/23 15:14> History of Present Illness HPI narrative: Per MSE <Bev Collado III, DO - Last Filed: 11/12/23 20:48> Related Data Home medications: Home Medications Medication Instructions Recorded Confirmed ascorbic acid (vitamin C) 1,000 mg 1 g PO DAILY 07/03/23 11/09/23 tablet coenzyme Q10 100 mg capsule 100 mg PO DAILY 07/03/23 11/09/23 cranberry conc 250 mg-vit C 30 1 tablet PO DAILY 07/03/23 11/09/23 mg-Bacillus coagulans 3.5 mg tablet (Cranberry Urinary Tract Health) magnesium 200 mg tablet 400 mg PO DAILY 07/03/23 11/09/23 mv-mn-iron fum-folic acid-omega 3, 1 cap PO DAILY 07/03/23 11/09/23 6, 9 no.3 18 mg-600 mcg capsule protein hydrolys-collagen 20 1 ea PO DAILY 07/03/23 11/09/23 gram-120 kcal/37.5 mL oral liquid packet loratadine 10 mg tablet (Claritin) 10 mg PO DAILY 07/20/23 11/09/23 <Susie Ohara [employer] - Last Filed: 11/12/23 15:14> Allergies/adverse reactions: Allergies Allergy/AdvReac Type Severity Reaction Status Date / Time No Known Allergies Allergy Verified 11/12/23 15:27 <Susie Ohara [employer] - Last Filed: 11/12/23 15:14> Review of Systems Review of Systems: All systems reviewed & are unremarkable except as noted in HPI and below <Bev Collado III, DO - Last Filed: 11/12/23 20:48> [facility] Past Medical History Medical History: Medical History (Updated 11/12/23 @ 17:45 by Bev Collado III, DO) Abnormal colonoscopy Abscess Acne Alcohol abuse Alopecia Anemia (~07/02/23) hemoglobin 10.5 with hematocrit 32.8 on 07/03/2023. BMI 26.0-26.9,adult BMI 30.0-30.9,adult Breast cancer screening by mammogram Chest pain Chronic anxiety Chronic rhinitis Closed fracture of distal end of left radius (03/27/22) Colon cancer (04/30/20) polyp with well- Differentiated adenocarcinoma removed April 2017 with normal colonoscopy August 2017. Colonoscopy 04/30/2020 normal with recheck in 3 years. Colon polyps Colonoscopy 10/26/2023 with 4 polyps of the transverse colon and 1 polyp of the rectum with recheck in 3 years. Encounter for wellness examination in adult Epistaxis, recurrent (~07/2021) Fever blister Hypoxia Influenza A (~06/29/23) N&V (nausea and vomiting) Obesity (BMI 30.0-34.9) Overweight (BMI 25.0-29.9) Personal history of colonic polyps Pharyngitis Pneumonia Right knee pain Syncope UTI (urinary tract infection) Weakness <Susie Ohara [employer] - Last Filed: 11/12/23 15:14> Surgical History Surgical History: Surgical History History of colonoscopy <Susie hOara [employer] - Last Filed: 11/12/23 15:14> Family History Family History: Family History (Updated 07/03/23 @ 01:55 by Allie Teague RN) Grandparent Diabetes mellitus Acute myocardial infarction Mother Family
[2023-11-12] MEDS: HYDROcodone/acetaminophen (*CRX) 5-325 MG TABLET 1 TAB PO (15:26)
[2023-11-12 15:36] LABS: Appearance Urine Clear (Clear); Bilirubin Urine Negative (Negative); Blood Urine Negative (Negative); Color Urine Yellow (Yellow); Glucose Urine UA Negative (Negative); Ketones Urine Negative (Negative); Leukocyte Esterase Ur Negative LEU/UL (Negative); Nitrate Urine Negative (Negative); Protein Urine Negative (Negative); Specific Grav Ur 1.014 (1.001-1.035); Urobilinogen Urine 0.2 mg/dL (<2.0); pH Urine 5.5 (5.0-9.0)
[2023-11-12 15:44] LABS: Basophils Absolute Auto 0.1 K/mm3 (0.0-0.1); Basophils Percent Auto 0.8 % (0.2-1.2); Eosinophils Absolute Auto 0.2 K/mm3 (0-0.3); Eosinophils Percent Auto 1.9 % (0-4.4); Hematocrit 41.8 % (37.0-47.0); Hemoglobin 13.4 g/dL (12.0-15.0); Immature Granulocyte Absolute 0.03 K/mm3 (0.00-0.031); Immature Granulocyte Percent A 0.3 % (0-0.5); Lymphocytes Absolute Auto 1.98 K/mm3 (0.9-3.2); Lymphocytes Percent Auto 22.1 % (18.3-44.2); Mean Corpuscular HGB Conc 32.1 g/dl (32-36); Mean Corpuscular Hemoglobin 26.9 pg (26-34); Mean Corpuscular Volume 83.8 fl (80-100); Monocytes Absolute Auto 0.6 K/mm3 (0.1-0.6); Monocytes Percent Auto 6.4 % (2.6-8.5); Neutrophils Absolute Auto 6.1 K/mm3 (1.3-6.7); Neutrophils Percent Auto 68.5 % (45.5-73.1); Platelet Count Result 311 k/mm3 (150-375); Red Blood Count 4.99 M/mm3 (4.2-5.4); Red Cell Distribution Width 13.8 % (11.5-14.5)
[2023-11-12 15:48] LABS: Add Urine Microscopic? NO
[2023-11-12 15:55] LABS: Anion Gap 9 mmol/L (4-12); Blood Urea Nitrogen 14 mg/dL (7-17); Calcium 9.5 mg/dL (8.4-10.2); Carbon Dioxide 24 mmol/L (22-30); Chloride 104 mmol/L (98-107); Estimated CRCL calculation 82 ml/min; Estimated Glomerular Filt Rate > 60; Glucose 123 mg/dL (65-110); Sodium 137 mmol/L (137-145)
[2023-11-12] MEDS: fentaNYL CITRATE INJ (*CRX) 100 MCG/2 ML VIAL 25 MCG IV PUSH (17:10)
[2023-11-12 17:12] VITALS: BP 119/67; PULSE 59; RESP 16; O2SAT 100
== END 2023-11-12 18:16 | disposition home or self-care (01) ==
PROVIDERS: Nurse Practitioner Family; Emergency Provider Emergency Medicine; PCP Family Medicine
DX: S32.018A Other fracture of first lumbar vertebra, initial encounter for closed fracture (principal); N28.89 Other specified disorders of kidney and ureter; E66.9 Obesity, unspecified; Z86.2 Personal history of diseases of the blood and blood-forming organs and certain disorders involving the immune mechanism; Z85.038 Personal history of other malignant neoplasm of large intestine; Z68.31 Body mass index [BMI] 31.0-31.9, adult; Z87.440 Personal history of urinary (tract) infections; Z87.01 Personal history of pneumonia (recurrent); Z87.891 Personal history of nicotine dependence; M47.816 Spondylosis without myelopathy or radiculopathy, lumbar region; W10.9XXA Fall (on) (from) unspecified stairs and steps, initial encounter
CPT/HCPCS: 36415; 72100; 72132; 74177; 80048; 81003; 81025; 85025; 96374; 99284; A9270; J3010; Q9967

== ENCOUNTER 2024-09-19 05:13 | Emergency (ER) | payer BC, SELFPAY ==
--- NOTE | ~2024-09-19 | CT_ITS ---
Non-contrast Head CT History: Syncope, status post fall Technique: Axial non-contrast imaging of the brain was performed. Dose reduction technique was used on this scan by utilizing automated exposure control and iterative reconstruction technique. The dose -length product (DLP) was 681.00 mGy-cm. Findings: There is no evidence of intracranial hemorrhage, mass lesion, or acute infarct. Brain par enchyma appears normal. The ventricles and subarachnoid spaces are normal in size. The calvarium ap pears normal. The visualized paranasal sinuses and mastoid air cells are clear. Impression: No significant abnormality seen. Reviewed, dictated and finalized at location . Impression: No significant abnormality seen.
--- NOTE | ~2024-09-19 | CT_ITS ---
CT Facial Bones and Cervical Spine Clinical Indication: Injury Technique: Contiguous axial scans were obtained through the facial bones and cervical spine followed by coronal and sagittal reconstructions. Dose reduction technique was used on this scan by utilizing automated exposure control and iterative reconstruction technique. The dose-length product (DLP) was 285.30 mGy-cm. Findings: CT facial bones: No fractures are identified. The visualized paranasal sinuses are clear. Intraorbita l soft tissues appear normal. CT cervical spine: No fractures or subluxation. There is straightening of the normal cervical lordos is. There is moderate to advanced degenerative disc narrowing at C3-C4, C4-C5, and C6-C7. There are m ild scattered facet joint degenerative change of the cervical spine. There is bilateral neural forami nal narrowing at C3-C4 with mild disc osteophyte complex. There is left neural foraminal narrowing at C4-C5. Probable mild right neural foraminal narrowing at C5-C6. 2No prevertebral soft tissue swellin g. Impression: No fracture is seen in the facial bones. No fracture or subluxation of the cervical spine. Degenerative changes in the cervical spine, as above. Reviewed, dictated and finalized at location M. Impression: No fracture is seen in the facial bones. No fracture or subluxation of the cervical spine. Degenerative changes in the cervical spine, as above.
[2024-09-19 05:14] VITALS: BP 138/89; PULSE 73; RESP 14; TEMP 36.4; O2SAT 100
--- NOTE | 2024-09-19 05:22 | ECG_ITS ---
Test Date: 2024-09-19 05:21:14 Measurements Intervals Boyce Rate: 70 P: 21 MD: 197 QRS: 62 QRSD: 81 T: 43 QT: 414 QTc: 449 Interpretive Statements SINUS RHYTHM No previous ECG available for comparison Electronically Signed On 09-19-2024 15:29:42 CDT by Surya Godfrey M.D.
[2024-09-19 05:34] LABS: Basophils Percent Auto 0.3 % (0.2-1.2); Eosinophils Absolute Auto 0.2 K/mm3 (0-0.3); Eosinophils Percent Auto 1.6 % (0-4.4); Hematocrit 42.3 % (37.0-47.0); Hemoglobin 13.2 g/dL (12.0-15.0); Immature Granulocyte Absolute 0.03 K/mm3 (0.00-0.031); Immature Granulocyte Percent A 0.3 % (0-0.5); Lymphocytes Absolute Auto 0.38 K/mm3 (0.9-3.2); Lymphocytes Percent Auto 3.5 % (18.3-44.2); Mean Corpuscular HGB Conc 31.2 g/dl (32-36); Mean Corpuscular Hemoglobin 27.2 pg (26-34); Mean Corpuscular Volume 87.2 fl (80-100); Mean Platelet Volume 9.7 fl (7.4-10.4); Monocytes Absolute Auto 0.6 K/mm3 (0.1-0.6); Neutrophils Absolute Auto 9.8 K/mm3 (1.3-6.7); Neutrophils Percent Auto 89.3 % (45.5-73.1); Platelet Count Result 266 k/mm3 (150-375); Red Blood Count 4.85 M/mm3 (4.2-5.4); Red Cell Distribution Width 13.5 % (11.5-14.5)
--- NOTE | 2024-09-19 05:34 | ED.NAVMDI ---
HPI - Nausea/Vomiting/Diarrhea General Chief complaint: Nausea/Vomiting/Diarrhea <Joanie Pretty MD - Last Filed: 09/19/24 08:03> Stated complaint: n/v/d syncope <Joanie Pretty MD - Last Filed: 09/19/24 08:03> Time Seen by Provider: 09/19/24 05:30 <Joanie Pretty MD - Last Filed: 09/19/24 08:03> Source: patient and family () <Joanie Pretty MD - Last Filed: 09/19/24 08:03> Mode of arrival: EMS <Joanie Pretty MD - Last Filed: 09/19/24 08:03> Limitations: no limitations <Joanie Pretty MD - Last Filed: 09/19/24 08:03> History of Present Illness HPI Narrative: Patient presents with acute onset nausea, vomiting, and diarrhea at approximately midnight. She states she had not been feeling well yesterday evening and went to bed feeling that way however her symptoms started acutely. She reports 6 episodes of emesis, 8 episodes of diarrhea, and initially reports 3 episodes of syncope (confirming both loss of consciousness and muscle tone) before her later clarifies that there were actually 4 in total. She lost consciousness for less than 60 seconds each time. Back to baseline upon return although briefly confused. During 1 of the episode she fell of the toilet and struck her head. She also is having pain at her left midfoot and left great toe. She has had episodes of syncope before and saw video surveillance technician for this; had been told her issue was due to her vagus nerve. EMS administered 4 mg of Zofran in route she states her nausea and vomiting is improved now. She denies any abdominal pain. Not on anticoagulation. Her grandson was sick with similar GI symptoms on and Thursday. She denies any myalgias, fevers, chills, recent travel, recent antibiotics. She denies any chest pain or palpitations. She denies any shortness of breath but she does state that she started panicking with this happened and she was very conscious of the fact that she was trying to steady herself by taking deep breaths. <Joanie Pretty MD - Last Filed: 09/19/24 08:03> Related Data Home medications: Home Medications ?Medication ?Instructions ?Recorded ?Confirmed ?Last Taken ?Type ascorbic acid (vitamin C) 1,000 mg 1 g PO DAILY 07/03/23 06/13/24 10/24/23 History tablet coenzyme Q10 100 mg capsule 100 mg PO DAILY 07/03/23 06/13/24 10/24/23 History cranberry conc 250 mg-vit C 30 1 tablet PO DAILY 07/03/23 06/13/24 10/24/23 History mg-Bacillus coagulans 3.5 mg tablet (Cranberry [facility]ract [facility]) magnesium 200 mg tablet 400 mg PO DAILY 07/03/23 06/13/24 10/24/23 History mv-mn-iron fum-folic acid-omega 3, 1 cap PO DAILY 07/03/23 06/13/24 10/24/23 History 6, 9 no.3 18 mg-600 mcg capsule protein hydrolys-collagen 20 1 ea PO DAILY 07/03/23 06/13/24 10/24/23 History gram-120 kcal/37.5 mL oral liquid packet loratadine 10 mg tablet (Claritin) 10 mg PO DAILY 07/20/23 06/13/24 10/24/23 History <Joanie Pretty MD - Last Filed: 09/19/24 08:03> Allergies/Adverse reactions: Allergies Allergy/AdvReac Type Severity Reaction Status Date / Time No Known Allergies Allergy Verified 11/12/23 15:27 <Joanie Pretty MD - Last Filed: 09/19/24 08:03> [facility] Past Medical History Medical History: Medical History Pharyngitis Chronic depression BMI 31.0-31.9,adult Essential hypertension (~04/2024) Renal oncocytoma of right kidney (~11/12/23) benign oncocytoma right kidney with robotic assisted partial nephrectomy 12/31/2023. Fracture of L1 vertebra (~11/2023) fracture of right transverse process of L1 on 11/12/2023 after a previous fall. Renal mass, right (11/12/23) Benign oncocytoma treated with robotic assisted partial nephrectomy 12/31/2023. 1.9 cm heterogeneously enhanced mass anterior upper pole right kidney noted on CT of the abdomen and pelvis in the ER on 11/12/2023. Anemia (~07/02/23) hemoglobin 10.5 with hematocrit 32.8 on 07/03/2023. hemoglobin 13.4 on 11/12/2023. Acne Fever blister Weakness Chest pain Right knee pain Pneumonia N&V (nausea and vomiting) Syncope Hypoxia Influenza A (~06/29/23) Personal history of colonic polyps Closed fracture of distal end of left radius (03/27/22) Obesity (BMI 30.0-34.9) Breast cancer screening by mammogram Normal mammogram 12/08/2023. Encounter for wellness examination in adult Epistaxis, recurrent (~07/2021) UTI (urinary tract infection) Colon cancer (04/30/20) polyp with well- Differentiated adenocarcinoma removed April 2017 with normal colonoscopy August 2017. Colonoscopy 04/30/2020 normal with recheck in 3 years. Abscess Abnormal colonoscopy Colon polyps Colonoscopy 10/26/2023 with 4 polyps of the transverse colon and 1 polyp of the rectum with recheck in 3 years. Alcohol abuse Alopecia Chronic anxiety Chronic rhinitis <Joanie Pretty MD - Last Filed: 09/19/24 08:03> Surgical History Surgical History: Surgical History History of colonoscopy <Joanie Pretty MD - Last Filed: 09/19/24 08:03> Family History Family History: Family History (Updated 07/03/23 @ 01:55 by Allie Teague RN) Grandparent Diabetes mellitus Acute myocardial infarction Mother Family history of cardiac disorder Father Cancer of blood vessel <Joanie Pretty MD - Last Filed: 09/19/24 08:03> Social History Social History: Social History Smoking packs per day: 0.5 Smoking cigarettes per day: 10.0 Years smoked: 30 Smoking pack-years: 15.00 Smoking status: Current every day smoker Tobacco type: e-cigarettes/vaping Smoking end date: 07/06/05 Alcohol intake: former Substance use: never Substance use type: does not use Last use: 8 YEARS AGO Do You Feel Safe in your Home?: Yes Lack of Transportation: No Lack of Food: Never True Current Housing: I Have Housing Concerned About Future Housing: No Difficulty Paying Gas/Electric Bills: No Difficulty Paying for Meds: No Currently Unemployed: No Education: High School Diploma/GED Difficulty w/ Childcare or Family Care: No Living arrangements: with family Additional living arrangements comments: Occupation/Education: occupation Gender identity (if verbalized by the patient): Female Sexual Orientation (if Verbalized by the Patient): Straight or Heterosexual Spiritual care concerns: No <Joanie Pretty MD - Last Filed: 09/19/24 08:03> Exam Narrative: GENERAL: Well-appearing, well-nourished, and in no acute distress. HEAD: Normocephalic, atraumatic. EYES: Non injected, non icteric ENT: Nares clear, no rhinorrhea or epistaxis. Ecchymosis over bridge of nose. No septal hematoma. NECK: Supple. CHEST: Speaking in full sentences. No respiratory distress. HEART: Regular rate and rhythm. ABDOMEN: Soft, nondistended. EXTREMITIES: Normal range of motion. No lower extremity edema. Faint ecchymosis over dorsal aspect of left midfoot. No ecchymosis on plantar aspect. SKIN: Warm, dry. NEURO: No focal deficits. Alert and oriented x3. No abnormal movements appreciated. Patient speaks clearly without aphasia or dysarthria. Moves extremities x4. PSYCH: Normal mood and affect. <Joanie Pretty MD - Last Filed: 09/19/24 08:03> Course Course Emergency Course: Patient resting comfortably. Informed of lab and imaging results. Appropriate for discharge home. Feels comfortable with this plan. Will receive antiemetics for home. Follow-up with PCP. <Saji Hermosillo MD - Last Filed: 09/19/24 08:27> Vital Signs Vital signs: Vital Signs Temperature 97.6 F 09/19/24 05:14 Pulse Rate 73 09/19/24 05:14 Respiratory Rate 14 09/19/24 05:14 Blood Pressure 138/89 09/19/24 05:14 Pulse Oximetry 100 09/19/24 05:14 Oxygen Delivery Room Air 09/19/24 05:14 Temperature 97.6 F 09/19/24 05:14 Pulse Rate 65 09/19/24 07:14 Respiratory Rate 16 09/19/24 07:14 Blood Pressure 123/82 09/19/24 07:14 Pulse Oximetry 100 09/19/24 07:14 Oxygen Delivery Room Air 09/19/24 05:14 <Joanie Pretty MD - Last Filed: 09/19/24 08:03> Vital Signs Temperature 97.6 F 09/19/24 05:14 Pulse Rate 73 09/19/24 05:14 Respiratory Rate 14 09/19/24 05:14 Blood Pressure 138/89 09/19/24 05:14 Pulse Oximetry 100 09/19/24 05:14 Oxygen Delivery Room Air 09/19/24 05:14 Temperature 97.6 F 09/19/24 05:14 Pulse Rate 65 09/19/24 07:14 Respiratory Rate 16 09/19/24 07:14 Blood Pressure 123/82 09/19/24 07:14 Pulse Oximetry 100 09/19/24 07:14 Oxygen Delivery Room Air 09/19/24 05:14 <Saji Hermosillo MD - Last Filed: 09/19/24 08:27> MDM - Nausea/Vomiting/Diarrhea MDM Narrative Medical decision making narrative: Patient presents with acute onset nausea, vomiting, and diarrhea resulting in multiple episodes of syncope. This has occurred before and been worked up and attributed to her vagus nerve. In the emergency department they are afebrile with vital signs within normal limits. Mild leukocytosis. [place] Syncope Rule: Congestive heart failure history: 0 Hematocrit <30%: 0 EKG abnormal (changed or any non-sinus rhythm): 0 SOB symptoms: 0 SBP <90mmHg at triage: 0 Orthostatic vital signs reviewed and okay. Urinalysis unremarkable. PO Challenge. Patient signed out to oncoming ED attending pending Xray of left foot and viral swab result. Patient otherwise reports feeling better with no recurrence of symptoms. She was observed ambulating with steady gait to bathroom. <Joanie Pretty MD - Last Filed: 09/19/24 08:03> Differential Diagnosis Differential diagnosis: Likely food poisoning, gastroenteritis, clostridium difficile infection, drug-induced nausea and vomiting, dehydration and other (Syncope etiologies including tachy dysrhythmias, Nadeem dysrhythmias, orthostatic, vasovagal) <Joanie Pretty MD - Last Filed: 09/19/24 08:03> Lab Data Attestation: I reviewed the patient's lab results. <Joanie Pretty MD - Last Filed: 09/19/24 08:03> Result diagrams: 09/19/24 05:24 09/19/24 05:24 <Joanie Pretty MD - Last Filed: 09/19/24 08:03> Labs: Lab Results 09/19/24 09/19/24 Range/Units 05:24 06:38 WBC 11.0 H (4.5-10.0) K/mm3 RBC 4.85 (4.2-5.4) M/mm3 Hgb 13.2 (12.0-15.0) g/dL Hct 42.3 (37.0-47.0) % MCV 87.2 (80-100) fl MCH 27.2 (26-34) pg MCHC 31.2 L (32-36) g/dl RDW 13.5 (11.5-14.5) % Plt Count 266 (150-375) k/mm3 MPV 9.7 (7.4-10.4) fl Immature Gran % (Auto) 0.3 (0-0.5) % Neut % (Auto) 89.3 H (45.5-73.1) % Lymph % (Auto) 3.5 L (18.3-44.2) % [place] % (Auto) 5.0 (2.6-8.5) % Eos % (Auto) 1.6 (0-4.4) % Baso % (Auto) 0.3 (0.2-1.2) % Lymph # (Auto) 0.38 L (0.9-3.2) K/mm3 [place] # (Auto) 0.6 (0.1-0.6) K/mm3 Eos # (Auto) 0.2 (0-0.3) K/mm3 Baso # (Auto) 0.0 (0.0-0.1) K/mm3 Abs Immat Gran (auto) 0.03 (0.00-0.031) K/mm3 Absolute Neuts (auto) 9.8 H (1.3-6.7) K/mm3 Absolute Nucleated RBC 0.000 (0.0-0.012) K/mm3 Nucleated RBC % 0.0 (0.0-0.2) % Sodium 139 (137-145) mmol/L Potassium 4.1 (3.4-5.0) mmol/L Chloride 105 (98-107) mmol/L Carbon Dioxide 21 L (22-30) mmol/L Anion Gap 13 H (4-12) mmol/L BUN 23 H (7-17) mg/dL Creatinine 0.96 (0.7-1.0) mg/dL Estim Creat Clear Calc 61 ml/min Estimated GFR 60 (59 - ) Glucose 148 H (65-110) mg/dL Calcium 8.7 (8.4-10.2) mg/dL Magnesium 1.8 (1.6-2.3) mg/dL Total Bilirubin 0.9 (0.2-1.3) mg/dL AST 23 (14-36) U/L ALT 14 (6-35) U/L Alkaline Phosphatase 82 (38-126) U/L Troponin I < 0.012 (0.000-0.034) ng/mL Total Protein 8.0 (6.3-8.2) g/dL Albumin 4.4 (3.5-5.1) g/dL Lipase 103 (23-300) U/L Urine Color Yellow (Yellow) Urine Appearance Clear (Clear) Urine pH 5.5 (5.0-9.0) Ur Specific [place] 1.026 (1.001-1.035) Urine Protein Trace (Negative) mg/dL Urine Glucose (UA) Negative (Negative) mg/dL Urine Ketones Negative (Negative) mg/dL Ur Blood (Man) Trace (Negative) Urine Nitrate Negative (Negative) Urine Bilirubin Negative (Negative) Urine Urobilinogen 0.2 (<2.0) mg/dL Leukocyte Esterase Rfl Negative (Negative) WILLIAN/UL Urine RBC 0-2 (0-2) /hpf Urine WBC 0-5 (0-3) /hpf Ur Squamous Epith Cells None seen (Few) /hpf Urine Bacteria None seen /hpf Urine Casts 0-2 C. difficile (PCR) Negative (NEGATIVE) Influenza A (RT-PCR) Negative (Negative) Influenza B (RT-PCR) Negative (Negative) RSV (RT-PCR) Negative (Negative) SARS-CoV-2 RNA (RT-PCR) Negative (Negative) <Joanie Pretty MD - Last Filed: 09/19/24 08:03> Lab Results 09/19/24 09/19/24 Range/Units 05:24 06:38 WBC 11.0 H (4.5-10.0) K/mm3 RBC 4.85 (4.2-5.4) M/mm3 Hgb 13.2 (12.0-15.0) g/dL Hct 42.3 (37.0-47.0) % MCV 87.2 (80-100) fl MCH 27.2 (26-34) pg MCHC 31.2 L (32-36) g/dl RDW 13.5 (11.5-14.5) % Plt Count 266 (150-375) k/mm3 MPV 9.7 (7.4-10.4) fl Immature Gran % (Auto) 0.3 (0-0.5) % Neut % (Auto) 89.3 H (45.5-73.1) % Lymph % (Auto) 3.5 L (18.3-44.2) % [place] % (Auto) 5.0 (2.6-8.5) % Eos % (Auto) 1.6 (0-4.4) % Baso % (Auto) 0.3 (0.2-1.2) % Lymph # (Auto) 0.38 L (0.9-3.2) K/mm3 [place] # (Auto) 0.6 (0.1-0.6) K/mm3 Eos # (Auto) 0.2 (0-0.3) K/mm3 Baso # (Auto) 0.0 (0.0-0.1) K/mm3 Abs Immat Gran (auto) 0.03 (0.00-0.031) K/mm3 Absolute Neuts (auto) 9.8 H (1.3-6.7) K/mm3 Absolute Nucleated RBC 0.000 (0.0-0.012) K/mm3 Nucleated RBC % 0.0 (0.0-0.2) % Sodium 139 (137-145) mmol/L Potassium 4.1 (3.4-5.0) mmol/L Chloride 105 (98-107) mmol/L Carbon Dioxide 21 L (22-30) mmol/L Anion Gap 13 H (4-12) mmol/L BUN 23 H (7-17) mg/dL Creatinine 0.96 (0.7-1.0) mg/dL Estim Creat Clear Calc 61 ml/min Estimated GFR 60 (59 - ) Glucose 148 H (65-110) mg/dL Calcium 8.7 (8.4-10.2) mg/dL Magnesium 1.8 (1.6-2.3) mg/dL Total Bilirubin 0.9 (0.2-1.3) mg/dL AST 23 (14-36) U/L ALT 14 (6-35) U/L Alkaline Phosphatase 82 (38-126) U/L Troponin I < 0.012 (0.000-0.034) ng/mL Total Protein 8.0 (6.3-8.2) g/dL Albumin 4.4 (3.5-5.1) g/dL Lipase 103 (23-300) U/L Urine Color Yellow (Yellow) Urine Appearance Clear (Clear) Urine pH 5.5 (5.0-9.0) Ur Specific [place] 1.026 (1.001-1.035) Urine Protein Trace (Negative) mg/dL Urine Glucose (UA) Negative (Negative) mg/dL Urine Ketones Negative (Negative) mg/dL Ur Blood (Man) Trace (Negative) Urine Nitrate Negative (Negative) Urine Bilirubin Negative (Negative) Urine Urobilinogen 0.2 (<2.0) mg/dL Leukocyte Esterase Rfl Negative (Negative) WILLIAN/UL Urine RBC 0-2 (0-2) /hpf Urine WBC 0-5 (0-3) /hpf Ur Squamous Epith Cells None seen (Few) /hpf Urine Bacteria None seen /hpf Urine Casts 0-2 C. difficile (PCR) Negative (NEGATIVE) Influenza A (RT-PCR) Negative (Negative) Influenza B (RT-PCR) Negative (Negative) RSV (RT-PCR) Negative (Negative) SARS-CoV-2 RNA (RT-PCR) Negative (Negative) <Saji Hermosillo MD - Last Filed: 09/19/24 08:27> Imaging Data Radiologist's impression: No fracture is seen in the facial bones. No fracture or subluxation of the cervical spine. Degenerative changes in the cervical spine, as above. Impression: No significant abnormality seen. <Joanie Pretty MD - Last Filed: 09/19/24 08:03> ECG Data EKG #1: Attestation: I personally reviewed and interpreted this ECG as follows: <Joanie Pretty MD - Last Filed: 09/19/24 08:03> ECG completion date: 09/19/24 <Joanie Pretty MD - Last Filed: 09/19/24 08:03> ECG completion time: 05:21 <Joanie Pretty MD - Last Filed: 09/19/24 08:03> Interpretation: Normal sinus rhythm at a rate of 70 beats per minute. [place] interval 197. QRS 81. QT/QTC 414/435. Good R-wave progression across the precordial leads. No T-wave inversions. Normal ECG. <Joanie Pretty MD - Last Filed: 09/19/24 08:03> Discharge Plan Discharge Clinical Impression: Leukocytosis, Syncope, vasovagal, Traumatic ecchymosis of nose, Acute pain of left foot, Gastroenteritis <Joanie Pretty MD - Last Filed: 09/19/24 08:03> Patient Disposition: Home, Self-Care <Joanie Pretty MD - Last Filed: 09/19/24 08:03> Condition: Stable <Joanie Pretty MD - Last Filed: 09/19/24 08:03> Instructions: Antibiotic Form, Syncope (DC), Gastroenteritis (ED), Ecchymosis (ED), Metatarsalgia (DC) <Joanie Pretty MD - Last Filed: 09/19/24 08:03> Additional Instructions: Return the ER if you have chest pain with shortness of breath, you have recurrent loss of consciousness, you cannot keep down food/water, or you have additional concerns. <Joanie Pretty MD - Last Filed: 09/19/24 08:03> Patient Language: Amharic <Joanie Pretty MD - Last Filed: 09/19/24 08:03> Prescriptions: New ondansetron 4 mg tablet,disintegrating 4 mg PO Q6H PRN (Reason: nausea and vomiting) Qty: 10 0RF No Action tretinoin [Retin-A] 0.1 % cream 1 applic topical QHS Qty: 20 5RF loratadine [Claritin] 10 mg Tablet 10 mg PO DAILY ascorbic acid (vitamin C) 1,000 mg Tablet 1 g PO DAILY magnesium 200 mg Tablet 400 mg PO DAILY Rx Instructions: magnesium asporotate 400mg daily coenzyme Q10 100 mg Capsule 100 mg PO DAILY mv-mn-iron fdf-EL-,6,9#3 18-600 mg-mcg Capsule 1 cap PO DAILY Patient Comments: will hold mtv with iron prior to colonoscopy [facility] 250-30-3.5 mg Tablet 1 tablet PO DAILY protein hydrolysate-collagen 20 gram-120 kcal/37.5 mL Liquid In Packet 1 ea PO DAILY valacyclovir 1 gram tablet 1,000 mg PO Q12H Qty: 10 4RF paroxetine HCl [Paxil] 20 mg tablet 20 mg PO . q.h.s. Qty: 30 11RF buspirone 5 mg tablet 5 mg PO BID Qty: 60 11RF amlodipine 5 mg tablet 5 mg PO DAILY Qty: 30 11RF lisinopril 20 mg tablet 20 mg PO DAILY Qty: 30 11RF amoxicillin 875 mg tablet 875 mg PO Q12H Qty: 14 0RF <Joanie Pretty MD - Last Filed: 09/19/24 08:03> Follow-up/Referrals: Cristiano Carlson MD [Primary Care Provider] - 1 Week <Joanie Pretty MD - Last Filed: 09/19/24 08:03>
--- OUTSIDE RECORDS SUMMARY | 2024-09-19 05:34 | XMS_ITS | Patient Health Summary ---
Author Organization [facility] Address [address] [place] [address] Care Team Providers Care Manager Laundry Name Role Phone Unavailable Primary Care Provider Unavailabl e Note from [facility],non-owned Affiliates and Associated Physician Practices is amultiple site organization consisting of ambulatory clinics and hospital sitesin [place], [place], [place] and [place]. This disclosure is being madepursuant to the Care Everywhere program and may not contain all information available regarding this patient. Last updated 18.[facility] Allergies No known active allergies Medications * Be aware that medications may not be up to date on this document. Alwaysverify current medications with the patient. * hydrOXYzine HCl (Atarax) 25 MG tablet(Started 05/22/2024) Take 1 (one) tablet by mouth 4 times daily as needed (anxiety) Reasons: Feeling Anxious Social History Tobacco Use Types Packs/Day Years Used Date Smoking Tobacco: Never Assessed Sex and Gender Information Value Date Recorded Sex Assigned at Not on file Gender Identity Not on file Sexual Orientation Not on file Last Filed Vital Signs Vital Sign Reading Time Taken Comments Blood Pressure 129/78 05/22/2024 10:30 PM ITEM REPAIR MANAGER Pulse 60 05/22/2024 11:15 PM ITEM REPAIR MANAGER Temperature 36.9 C (98.5 F) 05/22/2024 8:58 PM ITEM REPAIR MANAGER Respiratory Rate 22 05/22/2024 10:15 PM ITEM REPAIR MANAGER Oxygen Saturation 99% 05/22/2024 10:45 PM ITEM REPAIR MANAGER Inhaled Oxygen Concentration - - Weight 83.9 kg (185 lb) 05/22/2024 8:58 PM ITEM REPAIR MANAGER Height 165.1 cm (5' 5 ) 05/22/2024 8:58 PM ITEM REPAIR MANAGER Body Mass Index 30.79 05/22/2024 8:58 PM [facility] Procedures * COMPREHENSIVE METABOLIC PANEL(Performed 05/22/2024) * CBC W AUTO DIFFERENTIAL(Performed 05/22/2024) * XR CHEST 1VW PORTABLE(Performed 05/22/2024) Performed for Nausea and vomiting, unspecified vomiting type Results * (ABNORMAL) CBC W AUTO DIFFERENTIAL (05/22/2024 9:23 PM [facility]) WBC 5.7 4.0 - 10.7 x10E9/L 05/22/2024 10:06 PM [facility] RBC Count 5.17 3.90 - 5.20 x10E12/L 05/22/2024 10:06 PM [facility] Hemoglobin 13.4 11.9 - 15.8 g/dL 05/22/2024 10:06 PM [facility] Hematocrit 40.3 34.8 - 46.1 % 05/22/2024 10:06 PM [facility] MCV 77.9(L) 80.0 - 98.0 fL 05/22/2024 10:06 PM [facility] MCH 25.9(L) 26.7 - 33.6 pg 05/22/2024 10:06 PM [facility] MCHC 33.3 31.7 - 36.3 g/dL 05/22/2024 10:06 PM [facility] RDW-CV 13.6 11.3 - 14.8 % 05/22/2024 10:06 PM [facility] Platelet Count 335 150 - 420 x10E9/L 05/22/2024 10:06 PM [facility] MPV 9.9 7.8 - 11.4 fL 05/22/2024 10:06 PM [facility] Neutrophil % 75.7(H) 41.0 - 74.0 % 05/22/2024 10:06 PM [facility] Lymphocyte % 19.3 17.0 - 47.0 % 05/22/2024 10:06 PM [facility] Monocyte % 4.2 3.0 - 11.0 % 05/22/2024 10:06 PM [facility] Eosinophil % 0.2 0.0 - 7.0 % 05/22/2024 10:06 PM [facility] Basophil % 0.4 0.0 - 1.6 % 05/22/2024 10:06 PM [facility] Immature Granulocytes % 0.2 0.0 - 1.0 % 05/22/2024 10:06 PM [facility] Neutrophil Absolute 4.33 1.60 - 7.50 x10E9/L 05/22/2024 10:06 PM [facility] Lymphocyte Absolute 1.10 1.00 - 4.40 x10E9/L 05/22/2024 10:06 PM [facility] Monocyte Absolute 0.24 0.15 - 1.00 x10E9/L 05/22/2024 10:06 PM [facility] Eosinophil Absolute 0.01 0.00 - 0.60 x10E9/L 05/22/2024 10:06 PM [facility] Basophil Absolute 0.02 0.00 - 0.13 x10E9/L 05/22/2024 10:06 PM [facility] Blood BLOOD SPECIMEN / Unknown Venipuncture / Unknown 05/22/2024 9:23 PM [facility] 05/22/2024 10:03 PM [facility] Danielle Rojo MD LAB - HEMATOLOGY ORD ERABLES [facility] [address] [place] [address] * (ABNORMAL) COMPREHENSIVE METABOLIC PANEL (05/22/2024 9:23 PM [facility]) Glucose 112(H) 70 - 99 mg/dL 05/22/2024 10:23 PM [facility] Sodium 136 136 - 145 mmol/L 05/22/2024 10:23 PM [facility] Potassium 3.6 3.5 - 5.1 mmol/L 05/22/2024 10:23 PM [facility] Chloride 99 98 - 107 mmol/L 05/22/2024 10:23 PM [facility] CO2 23 22 - 29 mmol/L 05/22/2024 10:23 PM [facility] Calcium 8.6 8.4 - 10.4 mg/dL 05/22/2024 10:23 PM [facility] Anion Gap 14 6 - 16 mmol/L 05/22/2024 10:23 PM [facility] BUN 8 7 - 26 mg/dL 05/22/2024 10:23 PM [facility] Creatinine 0.87 0.57 - 1.11 mg/dL 05/22/2024 10:23 PM [facility] Alkaline Phosphatase 71 40 - 150 U/L 05/22/2024 10:23 PM [facility] ALT 7 0 - 55 U/L 05/22/2024 10:23 PM [facility] AST 17 5 - 34 U/L 05/22/2024 10:23 PM [facility] Protein Total 8.6(H) 6.4 - 8.3 gm/dL 05/22/2024 10:23 PM [facility] Albumin 4.1 3.4 - 5.0 gm/dL 05/22/2024 10:23 PM [facility] Bilirubin Total 0.7 0.2 - 1.2 mg/dL 05/22/2024 10:23 PM [facility] eGFR by CKD-EPI 78(L) >=90 mL/min/1.7 3 m2 05/22/2024 10:23 PM [facility] Blood BLOOD SPECIMEN / Unknown Venipuncture / Unknown 05/22/2024 9:23 PM ITEM REPAIR MANAGER 05/22/2024 10:03 PM ITEM REPAIR MANAGER Danielle Rojo MD [facility] Organization Address City/State/ZIP Co de Phone Number [facility] [address] [place] [address] * XR CHEST 1VW PORTABLE (05/22/2024 9:14 PM ITEM REPAIR MANAGER) Anatomical Region Laterality Modality Chest Radiographic Mariel ging 05/23/2024 8:30 AM ITEM REPAIR MANAGER Impressions 05/23/2024 8:31 AM ITEM REPAIR MANAGER IMPRESSION: No radiographic evidence of an acute cardiopulmonary process. > Interpreting Provider: Johnathan Gates MD on 05/23/2024 8:31 AM Narrative 05/23/2024 8:31 AM ITEM REPAIR MANAGER PROCEDURE: XR CHEST 1VW PORTABLE DATE/TIME OF EXAM: 05/22/2024 9:14 PM CLINICAL INFORMATION: None relevant/not provided if blank. Indication: R11.2: Nausea with vomiting, unspecified Additional History: COMPARISON: None. FINDINGS: Cardiac silhouette is within normal limits. Trachea midline. Lungs appear normally expanded. There is no consolidation, pneumothorax, or large pleural effusion. Procedure Note Johnathan Gates MD - 05/23/2024 PROCEDURE: XR CHEST 1VW PORTABLE DATE/TIME OF EXAM: 05/22/2024 9:14 PM CLINICAL INFORMATION: None relevant/not provided if blank. Indication: R11.2: Nausea with vomiting, unspecified Additional History: COMPARISON: None. FINDINGS: Cardiac silhouette is within normal limits. Trachea midline. Lungsappear normally expanded. There is no consolidation, pneumothorax, or large pleural effusion. IMPRESSION: No radiographic evidence of an acute cardiopulmonary process. > Interpreting Provider: Johnathan Gates MD on 05/23/2024 8:31 AM Danielle Rojo MD DIAGNOSTIC IMAGING [facility]
--- OUTSIDE RECORDS SUMMARY | 2024-09-19 05:34 | XMS_ITS | Referral Summary ---
Author Organization [facility] Address [address] [place] [address] Care Team Providers Care Division Operations Manager Name Role Phone Unavailable Primary Care Provider Unavailabl e Source Comments [facility],non-owned Affiliates and Associated Physician Practices is amultiple site organization consisting of ambulatory clinics and hospital sitesin [place], [place], [place] and [place]. This disclosure is being madepursuant to the Care Everywhere program and may not contain all information available regarding this patient. Last updated 18.[employer] [facility] Allergies No known active allergies Medications * Be aware that medications may not be up to date on this document. Alwaysverify current medications with the patient. Medication Sig Dispensed Refills Start Date End Date Status hydrOXYzine HCl (Atarax) 25 MG tabletIndications:Anx iety Take 1 (one) tablet by mouth 4 times daily as needed (anxiety) Reasons: Feeling Anxious 30 tablet 05/22/2024 Active Social History Tobacco Use Types Packs/Day Years Used Date Smoking Tobacco: Never Assessed Sex and Gender Information Value Date Recorded Sex Assigned at Not on file Gender Identity Not on file Sexual Orientation Not on file Last Filed Vital Signs Vital Sign Reading Time Taken Comments Blood Pressure 129/78 05/22/2024 10:30 PM BALLISTICS EXPERT FORENSIC Pulse 60 05/22/2024 11:15 PM BALLISTICS EXPERT FORENSIC Temperature 36.9 C (98.5 F) 05/22/2024 8:58 PM BALLISTICS EXPERT FORENSIC Respiratory Rate 22 05/22/2024 10:15 PM BALLISTICS EXPERT FORENSIC Oxygen Saturation 99% 05/22/2024 10:45 PM BALLISTICS EXPERT FORENSIC Inhaled Oxygen Concentration - - Weight 83.9 kg (185 lb) 05/22/2024 8:58 PM BALLISTICS EXPERT FORENSIC Height 165.1 cm (5' 5 ) 05/22/2024 8:58 PM BALLISTICS EXPERT FORENSIC Body Mass Index 30.79 05/22/2024 8:58 PM BALLISTICS EXPERT FORENSIC Plan of Treatment Not on file Jocelyne Lou Personal/Family Self 1965 [place] LOU Personal/Family Spouse
--- OUTSIDE RECORDS SUMMARY | 2024-09-19 05:34 | XMS_ITS | Referral Summary ---
Author Organization [address] Address [facility] [place] [address] Care Team Providers Care Curb Attendant Name Role Phone Cristiano Carlson MD Primary Care Provider [phone] Miles Joy MD Unavailable [phone] Allergies No known active allergies Medications oxyCODONE (ROXICODONE) 5 mg immediate release tabletIndications: Pain Take 1 tablet (5 mg total) by mouth every 8 (eight) hours as needed for pain 12 tablet 4 Active senna-docusate (PERICOLACE) 8.6-50 mg Take 1 tablet by mouth daily for 10 days 10 tablet 4 Active acetaminophen (TYLENOL) 500 mg tablet Take 2 tablets (1,000 mg total) by mouth every 8 (eight) hours as needed for pain Takes along with oxycodone Active ondansetron ODT (ZOFRAN-ODT) 8 mg disintegrating tablet Take 1 tablet (8 mg total) by mouth every 8 (eight) hours as needed for nausea or vomiting 20 tablet 4 Active Active Problems Problem Noted Date Diagnosed Date Right renal mass 12/31/2023 Renal mass, right 12/31/2023 Renal mass 11/17/2023 Abnormal mammogram 03/10/2013 Social History Tobacco Use Types Packs/Day Years Used Date Smoking Tobacco: Former Smokeless Tobacco: Never Tobacco Cessation:Counseling Given: Not Answered AUDIT-C Answer Date Recorded Q1: How often do you have a drink containing alc ohol? 2-3 times a week 12/23/2023 Q2: How many drinks containi ng alcohol do you have on a typical day when you are drinking? 1 or 2 12/23/2023 Q3: How often do you have si x or more drinks on one occasion? Never 12/23/2023 Personal Safety Answer Date Recorded Have you ever been in or are you currently in a harmful physical or emotional relationship or is someone making you feel afraid or unsafe? Denies 01/02/2024 Comments No Sex and Gender Information Value Date Recorded Sex Assigned at Not on file Legal Sex Female 1:14 PM REVERBERATORY SKIMMER Gender Identity Not on file Sexual Orientation Not on file Last Filed Vital Signs Vital Sign Reading Time Taken Comments Blood Pressure 112/81 01/02/2024 1:30 PM CDT Pulse 93 01/02/2024 1:30 PM CDT Temperature 37.6 C (99.7 F) 01/02/2024 10:08 AM CDT Respiratory Rate 14 01/02/2024 1:30 PM CDT Oxygen Saturation 94% 01/02/2024 1:30 PM CDT Inhaled Oxygen Concentration - - Weight 83.9 kg (185 lb) 01/02/2024 10:08 AM CDT Height 165.1 cm (5' 5 ) 01/02/2024 10:08 AM CDT Body Mass Index 30.79 01/02/2024 10:08 AM CDT Plan of Treatment Not on file Insurance [facility] [employer] OOS [employer] CHOICE OOS Advance Directives For more information, please contact: [phone] * Full Code (Latest Code Status on File) Date Activated Date Inactivated Comments 12/31/2023 11:34 AM 01/01/2024 2:50 PM Care Teams Curb Attendant Relationship Specialty Start Date End Date Cristiano Carlson MD [address] [address] PCP - General Family Medicine 11/13/23 Miles Joy MD [address] [place] [address] Consulting Physician Urology 01/01/24
--- OUTSIDE RECORDS SUMMARY | 2024-09-19 05:34 | XMS_ITS | Clinical Summary ---
Author Organization [address] Address [facility] [place] [address] Care Team Providers Care Cardboard Cutter Name Role Phone Cristiano Carlson MD Primary Care Provider [phone] Miles Joy MD Unavailable [phone] Allergies No known active allergies Medications oxyCODONE [...] 12/31/2023 Renal mass 11/17/2023 Abnormal mammogram 03/10/2013 Surgical History Surgery Date Site/Laterality Comments ENDOMETRIAL ABLATION COLONOSCOPY COLON POLYPECTOMY Medical History Medical History Date Comments History of alcohol abuse Vasovagal syncope Right renal mass Obesity History of colon cancer Social History Tobacco Use Types Packs/Day Years [...] on file Legal Sex Female 1:14 PM INFORMATION TECHNOLOGY INTERN Gender Identity Not on file Sexual Orientation Not on file Obstetrics History Last Filed Vital Signs Vital Sign Reading [...] 01/02/2024 10:08 AM CDT Plan of Treatment Health Maintenance Due Date Last Done Comments Breast Cancer Screening-Mammogram 1965 Cervical Cancer Screening 1966 Colon Cancer Screening-Colonoscopy 1966 Depression Screening 1966 Hepatitis C Screening 1966 DTaP/Tdap/Td Vaccine (1 - Tdap) 1977 Hepatitis B Screening 1984 Regular Well Visit/Exam 18-64 1984 Zoster Vaccine (1 of 2) 2016 Influenza Vaccine (#1) 2024 Pneumococcal vaccine <65 Aged Out No longer eligible based on patient's age to complete this topic Insurance [employer] OOS [employer] OOS Advance Directives For more information, please contact: [phone] * Full Code (Latest Code Status on File) Date Activated Date Inactivated Comments 12/31/2023 11:34 AM 01/01/2024 2:50 PM Care Teams Cardboard Cutter Relationship Specialty Start Date End Date Cristiano Carlson MD [address] [address] PCP - General Family Medicine 11/13/23 Miles Joy MD [address] [address] Consulting Physician Urology 01/01/24
--- OUTSIDE RECORDS SUMMARY | 2024-09-19 05:34 | XMS_ITS | Clinical Summary ---
Author Organization [facility] [employer] Address [address] [place] [address] Care Team Providers Care Manual Winder Name Role Phone Unavailable Primary Care Provider Unavailabl e Source Comments [facility] [employer],non-owned Affiliates and Associated Physician Practices is amultiple site organization consisting of ambulatory clinics and hospital sitesin [place], [place], [place] and [place]. This disclosure is being madepursuant to the Care Everywhere program and may not contain all information available regarding this patient. Last updated 18.[facility] Allergies No known active allergies Medications * [...] Comments Blood Pressure 129/78 05/22/2024 10:30 PM SALESPERSON RECREATIONAL VEHICLES Pulse 60 05/22/2024 11:15 PM SALESPERSON RECREATIONAL VEHICLES Temperature 36.9 C (98.5 F) 05/22/2024 8:58 PM SALESPERSON RECREATIONAL VEHICLES Respiratory Rate 22 05/22/2024 10:15 PM SALESPERSON RECREATIONAL VEHICLES Oxygen Saturation 99% 05/22/2024 10:45 PM SALESPERSON RECREATIONAL VEHICLES Inhaled Oxygen Concentration - - Weight 83.9 kg (185 lb) 05/22/2024 8:58 PM SALESPERSON RECREATIONAL VEHICLES Height 165.1 cm (5' 5 ) 05/22/2024 8:58 PM SALESPERSON RECREATIONAL VEHICLES Body Mass Index 30.79 05/22/2024 8:58 PM SALESPERSON RECREATIONAL VEHICLES Plan of Treatment Health Maintenance Due Date Last Done Comments COLOGUARD (AGES 45-75) - COL ON CA SCREENING 1966 COLON MONITORING 1966 COLONOSCOPY - COLON CA SCREENING 1966 CT COLONOGRAPHY - COLON CA SCREENING 1966 Colorectal Cancer Screening 1966 FIT - COLON CA SCREENING 1966 FLEX SIG - COLON CA SCREENING 1966 LIPID TESTING 1966 MAMMOGRAM 1966 PAP SMEAR 1966 HIV SCREENING 1981 HEPATITIS C SCREENING 06/07/1984 DTAP/TDAP/TD VACCINES (1 - Tdap) 1985 HEPATITIS B VACCINE (1 of 3 - 19+ 3-dose series) 1985 PNEUMOCOCCAL VACCINE 50+ (1 of 1 - PCV) 2016 ZOSTER VACCINE (1 of 2) 2016 COVID-19 VACCINE ( - 2023-2 5 season) 2024 INFLUENZA VACCINE (#1) 2024 DEPRESSION SCREENING 07/06/2024 HIB VACCINE Aged Out No longer eligi ble based on patient's age to complete this topic HPV VACCINE Aged Out No longer eligi ble based on patient's age to complete this topic MENINGOCOCCAL (Group B) VACC INE SHARED DECISION-MAKING Aged Out No longer eligibl e based on patient's age to complete this topic MENINGOCOCCAL GROUPS A/C/Y/W VACCINE Aged Out No longer eligible b ased on patient's age to complete this topic PNEUMOCOCCAL VACCINE Aged Out No long er eligible based on patient's age to complete this topic Jocelyne Lou Personal/Family Self 1965 [place] LOU Personal/Family Spouse
[2024-09-19 05:52] LABS: Alanine Aminotransferase 14 U/L (6-35); Albumin Level 4.4 g/dL (3.5-5.1); Alkaline Phosphatase 82 U/L (38-126); Anion Gap 13 mmol/L (4-12); Aspartate Amino Transferase 23 U/L (14-36); Bilirubin,Total 0.9 mg/dL (0.2-1.3); Blood Urea Nitrogen 23 mg/dL (7-17); Calcium 8.7 mg/dL (8.4-10.2); Carbon Dioxide 21 mmol/L (22-30); Chloride 105 mmol/L (98-107); Estimated CRCL calculation 61 ml/min; Estimated Glomerular Filt Rate 60; Glucose 148 mg/dL (65-110); Lipase 103 U/L (23-300); Potassium 4.1 mmol/L (3.4-5.0); Sodium 139 mmol/L (137-145)
[2024-09-19 06:00] LABS: Magnesium 1.8 mg/dL (1.6-2.3)
[2024-09-19 06:13] LABS: Troponin I < 0.012 ng/mL (0.000-0.034)
[2024-09-19] MEDS: SODIUM CHLORIDE 0.9% IV 1,000 ML 999 ML IV CONT (06:40)
[2024-09-19] MEDS: ONDANSETRON INJ 4 MG/2 ML VIAL IV PUSH (06:40)
[2024-09-19 07:07] LABS: Add Urine Microscopic? YES; Appearance Urine Clear (Clear); Bacteria Urine None Seen /hpf; Bilirubin Urine Negative (Negative); Blood Urine Trace (Negative); Color Urine Yellow (Yellow); Glucose Urine UA Negative (Negative); Ketones Urine Negative (Negative); Leukocyte Esterase Ur Negative LEU/UL (Negative); Nitrate Urine Negative (Negative); Non Pathogenic Casts 0-2; Protein Urine Trace mg/dL (Negative); RBC Urine 0-2 /hpf (0-2); Specific Grav Ur 1.026 (1.001-1.035); Squamous Epithelial Cell Urine None Seen /hpf (Few); Urobilinogen Urine 0.2 mg/dL (<2.0); WBC Urine 0-5 /hpf (0-3); pH Urine 5.5 (5.0-9.0)
[2024-09-19 07:14] VITALS: BP 123/82; PULSE 65; RESP 16; O2SAT 100
[2024-09-19 07:56] LABS: Influenza A QL RT-PCR Negative (Negative); Influenza B QL RT-PCR Negative (Negative); RSV RNA, RT-PCR Negative (Negative); SARS-CoV-2 RNA PCR Negative (Negative)
[2024-09-19 07:59] LABS: Toxigenic C. Diff NEGATIVE (NEGATIVE)
--- NOTE | 2024-09-19 08:10 | PC.NURSE ---
Pt tolerated PO challenge well.
[2024-09-19 08:37] VITALS: BP 107/75; PULSE 80; RESP 16; O2SAT 99
== END 2024-09-19 08:40 | disposition home or self-care (01) ==
PROVIDERS: Emergency Provider Student in an Organized Health Care Education/Training Program; PCP Family Medicine
DX: K52.9 Noninfective gastroenteritis and colitis, unspecified (principal); R55 Syncope and collapse; S00.33XA Contusion of nose, initial encounter; M79.672 Pain in left foot; D72.829 Elevated white blood cell count, unspecified; Z20.822 Contact with and (suspected) exposure to COVID-19; I10 Essential (primary) hypertension; E66.9 Obesity, unspecified; Z68.31 Body mass index [BMI] 31.0-31.9, adult; F41.9 Anxiety disorder, unspecified; F32.A Depression, unspecified; Z85.038 Personal history of other malignant neoplasm of large intestine; Z87.01 Personal history of pneumonia (recurrent); Z87.440 Personal history of urinary (tract) infections; Z86.2 Personal history of diseases of the blood and blood-forming organs and certain disorders involving the immune mechanism; Z87.891 Personal history of nicotine dependence; Z90.5 Acquired absence of kidney; W18.11XA Fall from or off toilet without subsequent striking against object, initial encounter
CPT/HCPCS: 36415; 70450; 70486; 72125; 73630; 80053; 81001; 83690; 83735; 84484; 85025; 87493; 87637; 93005; 96361; 96374; 99284; J2405; J7030

== ENCOUNTER 2025-04-03 00:36 | Day surgery (SDC) | payer BC, SELFPAY ==
[2025-03-22 13:02] VITALS: BMI 29.4
--- NOTE | 2025-03-22 13:11 | PC.NURSE ---
Report to the Outpatient Waiting Room, entrance under the green pavilion located off [facility], at time __1200 on date __09/19/24 . Planned Procedure Time: __1400 .? Time changes happen often and if your time is changed the preop area will call you the afternoon before. - You and your visitor will be asked to self-screen and do not enter if you have any COVID symptoms. Please call surgeon if you need to reschedule. - A mask is optional within the hospital at this time. Patients may have clear liquids (water, carbonated beverages, clear teas, apple juice) until 3 hours prior to surgery with a maximum of 20 ounces. - No food from midnight until time of surgery and no smoking, or chewing tobacco (or any form of nicotine). No chewing gum, candy or mints. - Infants may have breast milk until 4 hours before surgery, formula 6 hours prior to surgery. - Children will be allowed to drink immediately following surgery.? If applicable, please bring a bottle or sippy cup to assist with drinking. Juice, water, soda, and popsicles are readily available.? For infants on formula, please bring formula the day of surgery.? Pacifiers are allowed. Take only the following medications with a SIP of water on the morning of surgery: __Buspirone DO NOT STOP ANY OF YOUR OTHER PRESCRIPTION MEDICATIONS PRIOR TO SURGERY EXCEPT THE FOLLOWING Hold all vitamins and supplements for 3 days per anesthesiologist. Medications to discontinue per physician ___N/A Date to take last dose__N/A Please no make-up, nail british, hairspray, perfume, deodorant, or body powder the day of surgery.? No jewelry (including any body piercings) or valuables the day of surgery, leave them at home.? Please take a shower or bath the night before, or the morning of, surgery with an antibacterial soap.? Wear comfortable, loose fitting clothing.? Children are encouraged to wear pajamas. - Jewelry must be removed prior to entering the operating room.? Rings and piercings that are not removed may be cut off. - The hospital will not accept responsibility for valuables.? - Please leave all valuables, including medications, at home the day of surgery. If you are going home after surgery, a licensed fast food delivery driver must drive you home.? - NO public transportation without another adult if you receive anesthesia. - We recommend that an adult stay with you for 24 hours following discharge. - We also recommend that you do not drive, make important decision, drink alcoholic beverages, or take any drugs that were not prescribed by your health care provider for at least 24 hours after your discharge time. For Pediatric surgeries, we recommend two adults accompany the child home. Follow any additional instructions given to you from your surgeon. Telephone instructions given to __Jocelyne and asked if any additional questions and then verbalized understanding. Patient advised to call surgeon office or pre surgery nurse liaison [phone] if any additional questions.
--- NOTE | 2025-04-02 17:01 | PM.IMHP ---
H&P: HPI History of Present Illness Date/Time: 04/02/25 17:01 Chief Complaint: Asymmetric tonsils left tonsil mass Narrative: Planned surgical procedure Review of Systems Review of Systems: All systems reviewed & are unremarkable except as noted in HPI and below [facility] Past Medical History Medical History Tonsillar hypertrophy, unilateral (~12/2024) rapidly enlarging left tonsil Mixed hyperlipidemia Pharyngitis Chronic depression BMI 31.0-31.9,adult Essential hypertension (~04/2024) Renal oncocytoma of right kidney (~11/12/23) benign oncocytoma right kidney with robotic assisted partial nephrectomy 12/31/2023. Fracture of L1 vertebra (~11/2023) fracture of right transverse process of L1 on 11/12/2023 after a previous fall. Renal mass, right (11/12/23) Benign oncocytoma treated with robotic assisted partial nephrectomy 12/31/2023. 1.9 cm heterogeneously enhanced mass anterior upper pole right kidney noted on CT of the abdomen and pelvis in the ER on 11/12/2023. Anemia (~07/02/23) hemoglobin 10.5 with hematocrit 32.8 on 07/03/2023. hemoglobin 13.4 on 11/12/2023. Acne Fever blister Weakness Chest pain Right knee pain Pneumonia N&V (nausea and vomiting) Syncope Hypoxia Influenza A (~06/29/23) Personal history of colonic polyps Closed fracture of distal end of left radius (03/27/22) Obesity (BMI 30.0-34.9) Breast cancer screening by mammogram Normal mammogram 12/08/2023. Encounter for wellness examination in adult Epistaxis, recurrent (~07/2021) UTI (urinary tract infection) Colon cancer (04/30/20) polyp with well- Differentiated adenocarcinoma removed April 2017 with normal colonoscopy August 2017. Colonoscopy 04/30/2020 normal with recheck in 3 years. Abscess Abnormal colonoscopy Colon polyps Colonoscopy 10/26/2023 with 4 polyps of the transverse colon and 1 polyp of the rectum with recheck in 3 years. Alcohol abuse Alopecia Chronic anxiety Chronic rhinitis Surgical History Surgical History History of colonoscopy Family History Family History Grandparent Diabetes mellitus Acute myocardial infarction Mother Family history of cardiac disorder Father Cancer of blood vessel Social History Social History (Updated 02/15/25 @ 07:59 by Ju Crump MA) Smoking packs per day: 0.5 Smoking cigarettes per day: 10.0 Years smoked: 30 Smoking pack-years: 15.00 Smoking status: Current every day smoker Tobacco type: e-cigarettes/vaping Smoking end date: 07/06/05 Alcohol intake: current Alcohol use details: 2 bottles of wine a week Substance use: never Substance use type: does not use Last use: 8 YEARS AGO Do You Feel Safe in your Home?: Yes Lack of Transportation: No Lack of Food: Never True Current Housing: I Have Housing Concerned About Future Housing: No Difficulty Paying Gas/Electric Bills: No Difficulty Paying for Meds: No Currently Unemployed: No Education: High School Diploma/GED Difficulty w/ Childcare or Family Care: No Living arrangements: with family Additional living arrangements comments: Occupation/Education: occupation Gender identity (if verbalized by the patient): Female Sexual Orientation (if Verbalized by the Patient): Straight or Heterosexual Spiritual care concerns: No Meds Home Medications and Allergies Home Medications ?Medication ?Instructions ?Recorded ?Confirmed ?Type ascorbic acid (vitamin C) 1,000 mg 1 g PO DAILY 07/03/23 03/22/25 History tablet Held on 03/22/25. Instructions: .Provider Order coenzyme Q10 100 mg capsule 100 mg PO DAILY 07/03/23 03/22/25 History Held on 03/22/25. Instructions: .Provider Order cranberry conc 250 mg-vit C 30 1 tablet PO DAILY 07/03/23 03/22/25 History mg-Bacillus coagulans 3.5 mg tablet (Cranberry Urinary Tract Health) Held on 03/22/25. Instructions: .Provider Order magnesium 200 mg tablet 400 mg PO DAILY 07/03/23 03/22/25 History Held on 03/22/25. Instructions: .Provider Order mv-mn-iron fum-folic acid-omega 1 cap PO DAILY 07/03/23 03/22/25 History 3,6,9 no.3 18 mg-600 mcg capsule Held on 03/22/25. Instructions: .Provider Order protein hydrolys-collagen 20 1 ea PO DAILY 07/03/23 03/22/25 History gram-120 kcal/37.5 mL oral liquid packet Held on 03/22/25. Instructions: .Provider Order tretinoin 0.1 % topical cream 1 applic topical QHS #20 grams 11/09/23 03/22/25 Rx (Retin-A) paroxetine HCl 20 mg tablet (Paxil) 20 mg PO . q.h.s. #30 tabs 02/01/24 03/22/25 Rx ipratropium bromide 21 mcg (0.03 2 spray intranasal .qd-tid #30 mL 02/15/25 03/22/25 Rx %) nasal spray mupirocin 2 % topical ointment 1 applic topical TID #22 grams 02/15/25 03/22/25 Rx (Centany) buspirone 5 mg tablet 5 mg PO BID #60 tabs 02/27/25 03/22/25 Rx amlodipine 5 mg tablet 5 mg PO HS 03/22/25 03/22/25 History lisinopril 20 mg tablet 20 mg PO HS 03/22/25 03/22/25 History omeprazole 40 mg capsule,delayed 40 mg PO HS 03/22/25 03/22/25 History release pantoprazole 20 mg tablet,delayed 20 mg PO HS 03/22/25 03/22/25 History release Allergies Allergy/AdvReac Type Severity Reaction Status Date / Time No Known Allergies Allergy Verified 03/22/25 12:32 Exam Narrative: Asymmetric left tonsil Assessment and Plan Assessment and plan (1) Tonsillar hypertrophy, unilateral: Onset Date: ~12/2024 Code(s): J35.1 - Hypertrophy of tonsils Status: Acute Assessment and Plan: Plan OR left-sided tonsillectomy. Total operative time 20 minutes. Anesthesia general. Risks were discussed bleeding infection damage to surrounding structures time off work time off school. Inherent risk of narcotic use. Failure to resolve symptoms. Failure to obtain diagnosis. Change in taste change in swallow tongue swelling all could be permanent. Damage to uvula damage to surrounding structures damage to any structure of the clavicles by myself. Damage to any structure in the induction and maintenance of anesthesia including vocal cord paralysis. (2) Tonsillar mass: Code(s): J35.8 - Other chronic diseases of tonsils and adenoids Status: Acute (3) Tonsil asymmetry: Code(s): J35.8 - Other chronic diseases of tonsils and adenoids Status: Acute
[2025-04-03] VITALS (10 sets, daily range): BP systolic 99–134; BP diastolic 58–78; PULSE 47–62; RESP 12–15; TEMP 36.3–37; O2SAT 93–100
--- OUTSIDE RECORDS SUMMARY | 2025-04-03 00:39 | XMS_ITS | Clinical Summary ---
Author Organization [facility] Address [address] [place] [address] Care Team Providers Care Atmospheric Drier Tender Name Role Phone Cristiano Carlson MD Primary Care Provider [phone] Encounters Date Type Department Care Team Description 02/13/2025 12:07 PM CDT - 02/13/2025 11:59 PM CDT [place] [address] [place] [address] Juan F Alegre MD Discharge Disposition: Home or Self Care (Routine Discharge) 02/13/2025 Travel from Last 3 Months Social History Tobacco Use Types Packs/Day Years Used Date Smoking Tobacco: Never Assessed Comments Unknown Sex and Gender Information Value Date Recorded Sex Assigned at Female 02/08/2025 4:13 PM CDT Legal Sex Female 4:11 PM CDT Gender Identity Not on file Sexual Orientation Not on file Plan of Treatment Health Maintenance Due Date Last Done Comments Cervical Cancer Screening Pa p Smear (Age 30 to 64) Every 3 Years 1966 Colorectal Cancer Screening Colonoscopy (10 Years) 1966 Annual Physical 1969 Hepatitis C 1984 DTaP, Tdap and Td Vaccines ( 1 - Tdap) 1985 Hepatitis B Vaccines (1 of 3 - 19+ 3-dose series) 1985 Cervical Cancer Screening Pa p with HPV Testing (Age 30 to 64) Every 5 Years 1996 Cervical Cancer Screening with HPV 1996 Mammogram Screening 2006 Pneumococcal Vaccine: 50+ Ye ars (1 of 1 - PCV) 2016 Zoster Vaccines (1 of 2) 2016 COVID-19 Vaccine (2023-2 5 season) 2025 Meningococcal B Vaccine Aged Out No l onger eligible based on patient's age to complete this topic Meningococcal Vaccine Aged Out No anabell shira eligible based on patient's age to complete this topic RSV Immunizations Under 20 Months Aged Out No longer eligible based on patient's age to complete this topic Procedures Procedure Name Priority Date/Time Associated Diagnosis Comments CT SOFT TISSUE NECK W CON Routine 02/13/2025 12:31 PM CDT Hypertrophy of tonsils Esophageal reflux Other chronic diseases of tonsils and adenoids Gastro-esophageal reflux disease with esophagitis CREATININE W/GFR Routine 02/13/2025 12:2 3 PM CDT from Last 3 Months Results * CT SOFT TISSUE NECK W CON (02/13/2025 12:31 PM CDT) Anatomical Region Laterality Modality Neck Computed Tomogra phy 02/13/2025 2:20 PM CDT Impressions 02/13/2025 2:24 PM CDT IMPRESSION: 1. Prominent asymmetric enlargement of the left palatine tonsil with some associated narrowing of the oropharyngeal airway. Advise correlation with direct visualization to exclude underlying tonsillar mass. 2. Prominent left level 2 lymph nodes. 3. No fluid collections. Ordered By: JUAN F ALEGRE Interpreted By: Claus Puri MD, 02/13/2025 2:20 PM Narrative 02/13/2025 2:24 PM CDT [facility] [address] [place] [address] DATE: 02/13/2025 12:08 PM INDICATION: Left-sided throat tightness. EXAMINATION: CT neck with contrast. TECHNIQUE: CT examination of the neck was performed after administration of 75mL IOPAMIDOL 76 % IV SOLN without adverse event with axial and multiplanar reformatted images obtained. A dose lowering technique was used for this procedure, which may include, but is not limited to, dose reduction technique, automated exposure control, the use of iterative reconstruction, and ALARA (As Low As Reasonably Achievable) / Image Gently techniques. COMPARISON: None FINDINGS: Streak artifact from dental amalgam/hardware partially obscures assessment. There is prominent asymmetric enlargement of the left palatine tonsil with some associated narrowing of the oropharyngeal airway. Prominent left level 2 lymph nodes measuring up to 19 x 10 mm. No intratonsillar, peritonsillar, parapharyngeal, retropharyngeal collections. Otherwise the visualized portions of the oral cavity, nasopharynx, hypopharynx, and larynx are unremarkable. Major salivary glands and thyroid gland are unremarkable. Major neck vascular structures are patent. Partially imaged portions of the intracranial compartment reveal no acute findings. Scattered intracranial vascular calcifications. Mastoid air cells are clear. Minimal mucosal thickening in the paranasal sinuses. Visualized orbits unremarkable. Imaged portions of the upper chest reveal no acute findings. Apical scarring. Degenerative changes noted in the spine. Procedure Note Claus Puri MD - 02/13/2025 [facility] [address] [place] [address] DATE: 02/13/2025 12:08 PM INDICATION: Left-sided throat tightness. EXAMINATION: CT neck with contrast. TECHNIQUE: CT examination of the neck was performed after administration of 75mLIOPAMIDOL 76 % IV SOLN without adverse event with axial and multiplanarreformatted images obtained. A dose lowering technique was used for this procedure, which may include,but is not limited to, dose reduction technique, automated exposurecontrol, the use of iterative reconstruction, and ALARA (As Low AsReasonably Achievable) / Image Gently techniques. COMPARISON: None FINDINGS: Streak artifact from dental amalgam/hardware partially obscuresassessment. There is prominent asymmetric enlargement of the left palatinetonsil with some associated narrowing of the oropharyngeal airway.Prominent left level 2 lymph nodes measuring up to 19 x 10 mm. Nointratonsillar, peritonsillar, parapharyngeal, retropharyngealcollections. Otherwise the visualized portions of the oral cavity,nasopharynx, hypopharynx, and larynx are unremarkable. Major salivaryglands and thyroid gland are unremarkable. Major neck vascular structuresare patent. Partially imaged portions of the intracranial compartment reveal no acutefindings. Scattered intracranial vascular calcifications. Mastoid aircells are clear. Minimal mucosal thickening in the paranasal sinuses.Visualized orbits unremarkable. Imaged portions of the upper chest reveal no acute findings. Apicalscarring. Degenerative changes noted in the spine. IMPRESSION: 1. Prominent asymmetric enlargement of the left palatine tonsil with someassociated narrowing of the oropharyngeal airway. Advise correlation withdirect visualization to exclude underlying tonsillar mass. 2. Prominent left level 2 lymph nodes. 3. No fluid collections. Ordered By: JUAN F ALEGRE Interpreted By: Claus Puri MD, 02/13/2025 2:20 PM Juan F Alegre MD CT Final Result * (ABNORMAL) CREATININE W/GFR (02/13/2025 12:23 PM CDT) CREATININE WHOLE BLOOD 1.1 0.6 - 1.3 mg/dL 02/13/2025 12:24 PM CDT [facility] GFR ESTIMATE 58(L) >90 ml/min/1.7 3 m2 02/13/2025 12:24 PM CDT [facility] 02/13/2025 12:2 3 PM CDT us Juan F Alegre MD POINT OF CARE TEST ORDERABLES F inal Result [facility] [address] [place] [address], [place] [phone] from Last 3 Months Insurance [facility] Care Teams Atmospheric Drier Tender Relationship Specialty Start Date End Date Cristiano Carlson MD [address] [place] [address] [address] [place] [address] PCP - General FAMILY PRACTICE 02/13/25
--- OUTSIDE RECORDS SUMMARY | 2025-04-03 00:39 | XMS_ITS | Clinical Summary ---
Author Organization [address] Address [facility] [place] [address] Care Team Providers Care Ward Supervisor Name Role Phone Cristiano Carlson MD Primary Care Provider [phone] Miles Joy MD Unavailable [phone] Allergies No known active allergies Medications oxyCODONE [...] on file Legal Sex Female 1:14 PM TEST BORER HELPER Gender Identity Not on file Sexual Orientation [...] 10:08 AM CDT Height 165.1 cm (5' 5) 01/02/2024 10:08 AM CDT Body Mass Index [...] (1 of 2) 2016 Influenza Vaccine (#1) 2025 Pneumococcal vaccine <65 Aged Out No longer eligible based on patient's age to complete this topic Insurance [employer] CHOICE OOS [employer] OOS Advance Directives For more information, please contact: [phone] * Full Code (Latest Code Status on File) Date Activated Date Inactivated Comments 12/31/2023 11:34 AM 01/01/2024 2:50 PM Care Teams Ward Supervisor Relationship Specialty Start Date End Date Cristiano Carlson MD [address] [address] PCP - General Family Medicine 11/13/23 Miles Joy MD [address] [place] [address] Consulting Physician Urology 01/01/24
--- OUTSIDE RECORDS SUMMARY | 2025-04-03 00:39 | XMS_ITS | Clinical Summary ---
Author Organization [facility] [employer] Address [address] [place] [address] Care Team Providers Care Software Sales Representative Name Role Phone Unavailable Primary Care Provider Unavailabl e Source Comments [facility] [employer],non-owned Affiliates and Associated Physician Practices is amultiple site organization consisting of ambulatory clinics and hospital sitesin [place], [place], [place] and [place]. This disclosure is being madepursuant to the Care Everywhere program and may not contain all information available regarding this patient. Last updated [employer] Allergies No known active allergies Medications * Be aware that medications may not be up to date on this document. Alwaysverify current medications with the patient. hydrOXYzine HCl (Atarax) 25 MG tabletIndicatio ns:Anxiety Take 1 (one) tablet by mouth 4 times daily as needed (anxiety) Reasons: Feeling Anxious 30 tablet 05/22/2024 Active Social History Tobacco Use Types Packs/Day Years Used Date Smoking Tobacco: Never Assessed Comments Unknown Sex and Gender Information Value Date Recorded Sex Assigned at Not on file Legal Sex Female 6:09 AM DRILL PRESS OPERATOR HELPER Gender Identity Not on file Sexual Orientation Not on file Last Filed Vital Signs Vital Sign Reading Time Taken Comments Blood Pressure 129/78 05/22/2024 10:30 PM DRILL PRESS OPERATOR HELPER Pulse 60 05/22/2024 11:15 PM DRILL PRESS OPERATOR HELPER Temperature 36.9 C (98.5 F) 05/22/2024 8:58 PM DRILL PRESS OPERATOR HELPER Respiratory Rate 22 05/22/2024 10:15 PM DRILL PRESS OPERATOR HELPER Oxygen Saturation 99% 05/22/2024 10:45 PM DRILL PRESS OPERATOR HELPER Inhaled Oxygen Concentration - - Weight 83.9 kg (185 lb) 05/22/2024 8:58 PM DRILL PRESS OPERATOR HELPER Height 165.1 cm (5' 5) 05/22/2024 8:58 PM DRILL PRESS OPERATOR HELPER Body Mass Index 30.79 05/22/2024 8:58 PM DRILL PRESS OPERATOR HELPER Plan of Treatment Health Maintenance Due Date Last Done Comments COLOGUARD (AGES 45-75) - COL ON CA SCREENING 1966 COLON MONITORING 1966 COLONOSCOPY - COLON CA SCREENING 1966 CT COLONOGRAPHY - COLON CA SCREENING 1966 Colorectal Cancer Screening 1966 FIT - COLON CA SCREENING 1966 FLEX SIG - COLON CA SCREENING 1966 LIPID TESTING 1966 MAMMOGRAM 1966 HIV SCREENING 1981 HEPATITIS C SCREENING 06/07/1984 DTAP/TDAP/TD VACCINES (1 - Tdap) 1985 HEPATITIS B VACCINE (1 of 3 - 19+ 3-dose series) 1985 PAP SMEAR 1987 PNEUMOCOCCAL VACCINE 50+ (1 of 1 - PCV) 2016 ZOSTER VACCINE (1 of 2) 2016 DEPRESSION SCREENING 07/06/2024 COVID-19 VACCINE (1 - 2023-2 5 season) 2025 INFLUENZA VACCINE (#1) 2025 HIB VACCINE Aged Out No longer eligi [...] patient's age to complete this topic Insurance [employer] * Guarantor: MARGARITO LOU Account Type Relation to Patient Date of Phone Billing Address Personal/Family Spouse [place] [phone] SELF PAY NO INSURANCE Member Subscriber Plan / Payer (Ef fective for All Dates) Name:Margarito Lou Member ID:Not on file Relation to Subscriber:Not on file Name:MARGARITO LOU Subscriber ID:Not on file Address: [place] [address] Payer ID:Not on file Group ID:Not on file Type:Self Pay Address: [facility] * Guarantor: MARGARITO LOU Account Type Relation to Patient Date of Phone Billing Address Personal/Family Spouse [place] [phone] BCBS/[employer]UE [employer] [place] [facility] [place] SELF PAY NO INSURANCE Member Subscriber Plan / Payer (Ef fective for All Dates) Name:Margarito Lou Member ID:Not on file Relation to Subscriber:Not on file Name:MARGARITO LOU Subscriber ID:Not on file Address: [address] [place] [phone] Payer ID:Not on file Group ID:Not on file Type:Self Pay Address: [place], [place] BCBS/BLUE [place] [employer] [facility] [place] [facility] Address: [facility] [address] [place] [address] SELF PAY NO INSURANCE Member Subscriber Plan / Payer (Ef fective for All Dates) Name:Margarito Lou Member ID:Not on file Relation to Subscriber:Not on file Name:MARGARITO LOU Subscriber ID:Not on file Address: [address] [place] [phone] Payer ID:Not on file Group ID:Not on file Type:Self Pay Address: [place], [place] * Guarantor: MARGARITO LOU Account Type Relation to Patient Date of Phone Billing Address Personal/Family Spouse
--- NOTE | 2025-04-03 07:20 | WPDHPUPDATE1 ---
History and Physical Update Update Date/Time: 04/03/25 07:20 History and Physical has been reviewed, including an updated exam of the patient. There are NO changes in the patient's condition. Risks, benefits, and alternatives have been discussed and questions answered. Patient agrees to proceed with procedure.
[2025-04-03] MEDS: ACETAMINOPHEN 500 MG TABLET 1000 MG PO (12:30)
--- NOTE | 2025-04-03 13:59 | WPDANESEPPF ---
Anes - Initial Pre Proc Eval Procedure: Operation Date: 04/03/25 14:00 Proposed Procedures p Left Tonsillectomy - Quoc Jacobson MD Date/Time: 04/03/25 13:59 Surgeon: Quoc Jacobson MD Pre Op Diagnosis: chronic diseases of Tonsils and adenoids Patient Data Age: 59 Gender: F Height: 1.66 m Weight: 83.1 kg Last Vital Signs Temp 98.6 F 04/03/25 12:15 Pulse 57 L 04/03/25 12:15 Resp 14 04/03/25 12:15 BP 99/58 L 04/03/25 12:15 Pulse Ox 100 04/03/25 12:15 O2 Del Method Room Air 04/03/25 12:15 Allergies Allergy/AdvReac Type Severity Reaction Status Date / Time No Known Allergies Allergy Verified 04/03/25 12:20 Home Medications ?Medication ?Instructions ?Recorded ?Confirmed ?Type ascorbic acid (vitamin C) 1,000 mg 1 g PO DAILY 07/03/23 03/22/25 History tablet Held on 03/22/25. Instructions: .Provider Order coenzyme Q10 100 mg capsule 100 mg PO DAILY 07/03/23 03/22/25 History Held on 03/22/25. Instructions: .Provider Order cranberry conc 250 mg-vit C 30 1 tablet PO DAILY 07/03/23 03/22/25 History mg-Bacillus coagulans 3.5 mg tablet (Cran4Home Urinary Tract Health) Held on 03/22/25. Instructions: .Provider Order magnesium 200 mg tablet 400 mg PO DAILY 07/03/23 03/22/25 History Held on 03/22/25. Instructions: .Provider Order mv-mn-iron fum-folic acid-omega 1 cap PO DAILY 07/03/23 03/22/25 History 3,6,9 no.3 18 mg-600 mcg capsule Held on 03/22/25. Instructions: .Provider Order protein hydrolys-collagen 20 1 ea PO DAILY 07/03/23 03/22/25 History gram-120 kcal/37.5 mL oral liquid packet Held on 03/22/25. Instructions: .Provider Order tretinoin 0.1 % topical cream 1 applic topical QHS #20 grams 11/09/23 03/22/25 Rx (Retin-A) paroxetine HCl 20 mg tablet (Paxil) 20 mg PO . q.h.s. #30 tabs 02/01/24 04/03/25 Rx ipratropium bromide 21 mcg (0.03 2 spray intranasal .qd-tid #30 mL 02/15/25 03/22/25 Rx %) nasal spray mupirocin 2 % topical ointment 1 applic topical TID #22 grams 02/15/25 03/22/25 Rx (Centany) buspirone 5 mg tablet 5 mg PO BID #60 tabs 02/27/25 04/03/25 Rx amlodipine 5 mg tablet 5 mg PO HS 03/22/25 04/03/25 History lisinopril 20 mg tablet 20 mg PO HS 03/22/25 04/03/25 History omeprazole 40 mg capsule,delayed 40 mg PO HS 03/22/25 04/03/25 History release pantoprazole 20 mg tablet,delayed 20 mg PO HS 03/22/25 04/03/25 History release ECG: SR 70 Patient hx anesthesia problems: none Family hx anesthesia problems: none Results Review: All pre-operative results and documents have been reviewed as part of the pre-operative evaluation. [facility] Past Medical History Medical History Tonsillar hypertrophy, unilateral (~12/2024) rapidly enlarging left tonsil Mixed hyperlipidemia Pharyngitis Chronic depression BMI 31.0-31.9,adult Essential hypertension (~04/2024) Renal oncocytoma of right kidney (~11/12/23) benign oncocytoma right kidney with robotic assisted partial nephrectomy 12/31/2023. Fracture of L1 vertebra (~11/2023) fracture of right transverse process of L1 on 11/12/2023 after a previous fall. Renal mass, right (11/12/23) Benign oncocytoma treated with robotic assisted partial nephrectomy 12/31/2023. 1.9 cm heterogeneously enhanced mass anterior upper pole right kidney noted on CT of the abdomen and pelvis in the ER on 11/12/2023. Anemia (~07/02/23) hemoglobin 10.5 with hematocrit 32.8 on 07/03/2023. hemoglobin 13.4 on 11/12/2023. Acne Fever blister Weakness Chest pain Right knee pain Pneumonia N&V (nausea and vomiting) Syncope Hypoxia Influenza A (~06/29/23) Personal history of colonic polyps Closed fracture of distal end of left radius (03/27/22) Obesity (BMI 30.0-34.9) Breast cancer screening by mammogram Normal mammogram 12/08/2023. Encounter for wellness examination in adult Epistaxis, recurrent (~07/2021) UTI (urinary tract infection) Colon cancer (04/30/20) polyp with well- Differentiated adenocarcinoma removed April 2017 with normal colonoscopy August 2017. Colonoscopy 04/30/2020 normal with recheck in 3 years. Abscess Abnormal colonoscopy Colon polyps Colonoscopy 10/26/2023 with 4 polyps of the transverse colon and 1 polyp of the rectum with recheck in 3 years. Alcohol abuse Alopecia Chronic anxiety Chronic rhinitis Surgical History Surgical History History of colonoscopy Family History Family History Grandparent Diabetes mellitus Acute myocardial infarction Mother Family history of cardiac disorder Father Cancer of blood vessel Social History Social History (Updated 02/15/25 @ 07:59 by Ju Crump MA) Smoking packs per day: 0.5 Smoking cigarettes per day: 10.0 Years smoked: 30 Smoking pack-years: 15.00 Smoking status: Current every day smoker Tobacco type: e-cigarettes/vaping Smoking end date: 07/06/05 Alcohol intake: current Alcohol use details: 2 bottles of wine a week Substance use: never Substance use type: does not use Last use: 8 YEARS AGO Do You Feel Safe in your Home?: Yes Lack of Transportation: No Lack of Food: Never True Current Housing: I Have Housing Concerned About Future Housing: No Difficulty Paying Gas/Electric Bills: No Difficulty Paying for Meds: No Currently Unemployed: No Education: High School Diploma/GED Difficulty w/ Childcare or Family Care: No Living arrangements: with family Additional living arrangements comments: Occupation/Education: occupation Gender identity (if verbalized by the patient): Female Sexual Orientation (if Verbalized by the Patient): Straight or Heterosexual Spiritual care concerns: No Anes - Eval Final PreProcedure Day of Procedure 04/03/25 13:59 Patient weight: normal Heart: regular rate and rhythm Lungs: clear to auscultation Airway: Mallampati scale class II Neurological: alert and oriented Last oral intake: >/= 8 hours ASA classification: II Emergent: no Anesthetic plan: proceed Anesthesia type and monitoring: general ETT and standard monitoring Results Review: All pre-operative results and documents have been reviewed as part of the pre-operative evaluation. HTN, smoker, hx of ETOH use. Now for tonsillar mass. Informed Consent: The patient's anesthetic plan and its attendant risks and benefits were discussed with the patient/family/POA. Questions were solicited and answers provided to the satisfaction of the patient/family/POA.
--- NOTE | 2025-04-03 14:28 | S_PTH ---
PATIENT: Jocelyne Costa LOC: [facility] U#:[id number] AGE/SX: 59/F ROOM: RE04/03/[address]: Quoc Jacobson MD : 1965 BED: DIS: 04/03/2025 SPEC #: [id number] RECD: 04/03/25 14:34 STATUS: FRE REKiera #: [id number] TOMMY: 04/03/25 14:[address]: Quoc Jacobson DEPT: [facility] Surgical RECD BY: Alyssa Neves ENTERED: 04/03/25 14:34 SP TYPE: Surgical OTHR DR: Cristiano Carslon MD Tissues: A - Tonsil NOS Procedures: Hematoxylin and Eosin Stain Gross and Microscopic Level 3
[2025-04-03] MEDS: LACTATED RINGERS 1,000 ML 30 ML IV CONT (14:41)
--- NOTE | 2025-04-03 14:49 | W.PM.PROC2 ---
Procedure Note - Detailed Date of Procedure 04/03/25 Pre-op Diagnosis Left tonsil mass Post-op Diagnosis Same Procedure Performed Left tonsillectomy Surgeon Quoc Jacobson MD Anesthesia General Indications See above Findings Very abnormal appearing tonsil scaly type white debris throughout it. Some some debris with a squamous type appearance as well. Description of Procedure Patient identified consent verified the preoperative holding area. Patient brought to the operating. Time-out performed. General anesthesia induced endotracheal tube secured. Patient prepped draped position procedure confirmed 2nd time-out performed. McIvor mouth gag inserted and opened revealing and it can incredibly abnormal appearing left-sided tonsil. This was removed with the coblator, setting of two, later any bleeders controlled the Coblator as well. After the tonsils out Anesthesia Valsalva no further bleeding ensued. I performed all dictated portions of procedure no complications. Care the patient back to Anesthesiology. McIvor mouth gag removed. Patient taken to PACU. Estimated Blood Loss 5 Drains No Packing No Pathology Yes (Sent Fresh) Complications No immediate complications Condition Stable Disposition PACU [facility] Billing Surgery - Charge Forward: Surgery Billing
[2025-04-03] MEDS: fentaNYL CITRATE INJ (*CRX) 100 MCG/2 ML VIAL 25 MCG IV PUSH ×2 (15:23→15:27)
[2025-04-03] MEDS: oxyCODONE HCL (*CRX) 5 MG TAB IR PO (16:26)
[2025-04-03] MEDS: ONDANSETRON INJ 4 MG/2 ML VIAL IV PUSH (16:32)
== END 2025-04-03 17:25 | disposition home or self-care (01) ==
PROVIDERS: PCP Family Medicine; Visit Provider Otolaryngology
PROC: (CPT 42826; principal; 2025-04-03 14:00)
DX: J35.01 Chronic tonsillitis (principal); G89.18 Other acute postprocedural pain; E78.5 Hyperlipidemia, unspecified; I10 Essential (primary) hypertension; D64.9 Anemia, unspecified; R09.02 Hypoxemia; F41.9 Anxiety disorder, unspecified; J31.0 Chronic rhinitis; F32.A Depression, unspecified; L65.9 Nonscarring hair loss, unspecified; F17.290 Nicotine dependence, other tobacco product, uncomplicated; Z86.0100 Personal history of colon polyps, unspecified; Z85.038 Personal history of other malignant neoplasm of large intestine; Z80.8 Family history of malignant neoplasm of other organs or systems; Z82.49 Family history of ischemic heart disease and other diseases of the circulatory system
CPT/HCPCS: 42826; 88304; A9270; J1100; J2003; J2250; J2405; J2704; J3010; J7120

== ENCOUNTER 2025-04-14 15:12 | Outpatient (CLI) | payer BC, SELFPAY ==
--- NOTE | ~2025-04-14 | US_ITS ---
EXAMINATION: US soft tissue head and neck DATE: 04/14/2025 16:01 INDICATION: Generalized enlarged lymph nodes. TECHNIQUE: Multiple grayscale and Doppler ultrasound images of the neck were obtained. COMPARISON: CT 09/19/2024 FINDINGS: There are normal lymph nodes in the neck bilaterally. IMPRESSION: 1. No abnormal neck mass or lymphadenopathy. Reviewed, dictated and finalized at location E.
== END 2025-04-14 15:13 | disposition home or self-care (01) ==
PROVIDERS: PCP Family Medicine; Visit Provider Otolaryngology
DX: R59.1 Generalized enlarged lymph nodes (principal)
CPT/HCPCS: 76536

== ENCOUNTER 2025-05-15 15:28 | Outpatient (CLI) | payer BC, SELFPAY ==
--- NOTE | ~2025-05-15 | CT_ITS ---
EXAM/PROCEDURE: CT soft tissue neck w con HISTORY: R59.0 - Localized enlarged lymph nodes. f/u lt tonsil remove COMPARISON: September 19, 2024 TECHNIQUE: Contrast-enhanced soft tissue neck CT FINDINGS: Scattered nonpathologic sized bilateral jugulodigastric, posterior triangle, submental and occipital lymph nodes noted. No suspicious mass or gross lymphadenopathy. No drainable fluid collection. The parapharyngeal and retropharyngeal spaces appear normal. Fossae of Rosenmuller are symmetric. Supraglottic and pharyngeal soft tissues appear within normal limits. Thyroid appears normal. Vascular structures are patent. Bones appear intact with multilevel degenerative changes in the cervical spine not grossly changed from previous exam. No acute process seen in the visualized intracranial contents or visualized upper chest. IMPRESSION: Numerous lymph nodes seen throughout the neck, although no pathologic size lymph nodes. No discrete/suspicious mass or drainable fluid collection/abscess. Reviewed, dictated and finalized at location A. ER IMPRESSION: Numerous lymph nodes seen throughout the neck, although no pathologic size lymp h nodes. No discrete/suspicious mass or drainable fluid collection/abscess.
--- OUTSIDE RECORDS SUMMARY | 2025-05-15 15:32 | XMS_ITS | Clinical Summary ---
Author Organization [facility] Address [address] [place] [address] Care Team Providers Care Sterile Products Processor Name Role Phone Unavailable Primary Care Provider Unavailabl e Source Comments [facility],non-owned Affiliates and Associated Physician Practices is amultiple site organization consisting of ambulatory clinics and hospital sitesin [place], [place], [place] and [place]. This disclosure is being madepursuant to the Care Everywhere program and may not contain all information available regarding this patient. 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[employer] Gender Identity Not on file Sexual Orientation Not on file Last Filed Vital Signs Vital Sign Reading Time Taken Comments Blood Pressure 129/78 05/22/2024 10:30 PM [employer]ICE [employer]IDENT [employer] Pulse 60 05/22/2024 11:15 PM [employer]ICE PRESIDENT [employer] Temperature 36.9 C (98.5 F) 05/22/2024 8:58 PM [employer]ICE [employer]IDENT [employer] Respiratory Rate 22 05/22/2024 10:15 PM [employer]ICE [employer]IDENT [employer] Oxygen Saturation 99% 05/22/2024 10:45 PM [employer]ICE PRESIDENT [employer] Inhaled Oxygen Concentration - - Weight 83.9 kg (185 lb) 05/22/2024 8:58 PM [employer]ICE [employer]IDENT [employer] Height 165.1 cm (5' 5) 05/22/2024 8:58 PM [employer]ICE PRESIDENT [employer] Body Mass Index 30.79 05/22/2024 8:58 PM VICE PRESIDENT [employer] Plan of Treatment Health Maintenance Due Date [...] patient's age to complete this topic Insurance [facility] [employer] SELF PAY NO INSURANCE Member Subscriber Plan / Payer (Ef fective for All Dates) Name:Margarito Lou Member ID:Not on file Relation to Subscriber:Not on file Name:MARGARITO LOU Subscriber ID:Not on file (Home) Address: [place] [address] Payer ID:Not on file Group ID:Not on file Type:Self Pay Address: [place], [place] [facility] SELF PAY NO INSURANCE Member Subscriber Plan / Payer (Ef fective for All Dates) Name:Margarito Lou Member ID:Not on file Relation to Subscriber:Not on file Name:MARGARITO LOU Subscriber ID:Not on file Address: [address] [place] [id number] Payer ID:Not on file Group ID:Not on file Type:Self Pay Address: [place] [employer] [facility] SELF PAY NO INSURANCE Member Subscriber Plan / Payer (Ef fective for All Dates) Name:Margarito Lou Member ID:Not on file Relation to Subscriber:Not on file Name:MARGARITO LOU Subscriber ID:Not on file Address: [address] [place] [id number] Payer ID:Not on file Group ID:Not on file Type:Self Pay Address: [place], [place] [facility] [place] SELF PAY NO INSURANCE Member Subscriber Plan / Payer (Ef fective for All Dates) Name:Margarito Lou Member ID:Not on file Relation to Subscriber:Not on file Name:MARGARITO LOU Subscriber ID:Not on file Address: [address] [place] [address] Payer ID:Not on file Group ID:Not on file Type:Self Pay Address: [place], [place] * Guarantor: MARGARITO LOU Account Type Relation to Patient Date of Phone Billing Address Personal/Family Spouse
--- OUTSIDE RECORDS SUMMARY | 2025-05-15 15:32 | XMS_ITS | Clinical Summary ---
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
== END 2025-05-15 15:29 | disposition home or self-care (01) ==
PROVIDERS: PCP Family Medicine; Visit Provider Otolaryngology
DX: R59.0 Localized enlarged lymph nodes (principal)
CPT/HCPCS: 70491; Q9967

== ENCOUNTER 2025-05-26 21:40 | Emergency (ER) | payer BC, SELFPAY ==
--- NOTE | ~2025-05-26 | CT_ITS ---
CT HEAD NON-CONTRAST Clinical History: syncope Comparison: CT brain 09/19/2024 Technique: Unenhanced axial images skull base to vertex Coronal, sagittal reformats CT images acquired with automatic exposure control for dose reduction DLP: 681 mGy-cm Findings: Mild white matter changes, typically chronic microvascular ischemic disease. Sulci, ventricles: Unremarkable. No intracerebral hemorrhage. No evidence acute territorial infarct. No mass effect, midline shift. Bony calvarium intact. Visualized paranasal sinuses: Clear. Mastoid air cells: Clear. Left parietal scalp contusion. IMPRESSION: 1. No acute intracranial findings. Reviewed, dictated and finalized at location R. ER BLANKET
--- NOTE | ~2025-05-26 | XR_ITS ---
Examination: XR chest 2V Clinical History: Syncope Comparison: 07/05/2023 Technique: PA and Lateral Findings: Cardiomediastinal silhouette normal size and configuration. Lungs clear. No acute bony abnormality. IMPRESSION: 1. No acute cardiopulmonary findings. Reviewed, dictated and finalized at location R. GER OF PMO
[2025-05-26 21:32] VITALS: BP 111/83; PULSE 65; RESP 15; O2SAT 99
--- NOTE | 2025-05-26 21:46 | ECG_ITS ---
Test Date: 2025-05-26 21:49:08 Measurements Intervals [place] Rate: 64 P: 18 NC: 209 QRS: 38 QRSD: 95 T: 30 QT: 427 QTc: 444 Interpretive Statements SINUS RHYTHM LOW QRS VOLTAGE IN PRECORDIAL LEADS [QRS DEFLECTION < 1.0 mV IN CHEST LEADS] Compared to ECG 09/19/2024 05:21:14 Low QRS voltage now present Electronically Signed On 05-27-2025 06:42:22 HELPER COORDINATOR by Jt Garcia M.D.
[2025-05-26 21:57] LABS: Hematocrit 36.0 % (37.0-47.0); Hemoglobin 11.5 g/dL (12.0-15.0); Immature Granulocyte Percent A 0.2 % (0-0.5); Lymphocytes Absolute Auto 2.56 K/mm3 (0.9-3.2); Mean Corpuscular HGB Conc 31.9 g/dl (32-36); Mean Corpuscular Hemoglobin 27.3 pg (26-34); Mean Corpuscular Volume 85.5 fl (80-100); Nucleated Red Blood Cells Absolute Auto 0.000 K/mm3 (0.0-0.012); Nucleated Red Blood Cells Perc 0.0 % (0.0-0.2); Platelet Count Result 277 k/mm3 (150-375); Red Blood Count 4.21 M/mm3 (4.2-5.4); White Blood Count 6.3 K/mm3 (4.5-10.0)
[2025-05-26 22:10] LABS: Alanine Aminotransferase 8 U/L (6-35); Albumin Level 4.1 g/dL (3.5-5.1); Alkaline Phosphatase 71 U/L (38-126); Anion Gap 9 mmol/L (4-12); Aspartate Amino Transferase 20 U/L (14-36); Bilirubin,Total 0.4 mg/dL (0.2-1.3); Blood Urea Nitrogen 16 mg/dL (7-17); Calcium 8.5 mg/dL (8.4-10.2); Carbon Dioxide 21 mmol/L (22-30); Chloride 106 mmol/L (98-107); Estimated CRCL calculation 52 ml/min; Estimated Glomerular Filt Rate 51; Glucose 98 mg/dL (65-110); Potassium 3.8 mmol/L (3.4-5.0); Sodium 136 mmol/L (137-145); Total Protein 7.5 g/dL (6.3-8.2)
[2025-05-26] MEDS: LACTATED RINGERS 1,000 ML 999 ML IV CONT (22:29)
--- NOTE | 2025-05-26 22:55 | ED_ITS ---
HPI - Syncope General Chief Complaint: Syncope Stated Complaint: etoh, syncope Time Seen by Provider: 05/26/25 21:47 History of Present Illness HPI narrative: 59-year-old female presenting to the emergency department after a syncopal event while she was drinking. Patient states that she has a history of frequent vagal events with hyperactive vagus nerve as told to her by her environmental protection geologist and previous physicians. Patient states she was out celebrating and celebrating to hard states she was having some drinks today and playing at the slot machine when she felt like she was about to pass out and vomited. She did briefly lose consciousness and fell down from a bar stool hitting the left side of her head. Quickly woke up thereafter. Answering all questions appropriately. No shaking or seizure-like activity. Presently she has no complaints at this time and denies any symptoms. denies any headache, neck pain, vision changes. No chest pain or discomfort. No nausea, vomiting presently. No abdominal discomfort or back pain. No traumatic injuries aside from hitting her head with a small scalp laceration. Related Data Home Medications ?Medication ?Instructions ?Recorded ?Confirmed ?Last Taken ?Type ascorbic acid (vitamin C) 1,000 mg 1 g PO DAILY 04/19/25 10/24/23 History tablet coenzyme Q10 100 mg capsule 100 mg PO DAILY 07/03/23 1 10/24/23 History cranberry conc 250 mg-vit C 30 1 tablet PO DAILY 07/0304/19/25 10/24/23 History mg-Bacillus coagulans 3.5 mg tablet (C[facility]) magnesium 200 mg tablet 400 mg PO DAILY 07/03/2310/24/23 History mv-mn-iron fum-folic acid-omega 1 cap PO DAILY 3 04/19/25 10/24/23 History 3,6,9 no.3 18 mg-600 mcg capsule omeprazole 40 mg capsule,delayed 40 mg PO HS 03/22/25 04/19/25 04/02/25 History release Allergies Allergy/AdvReac Type Severity Reaction Status Date / Time No Known Allergies Allergy Verified 04/19/25 08:10 Review of Systems 2 Review of Systems: as reviewed above in HPI [facility] Past Medical History Medical History Tonsillar hypertrophy, unilateral (~12/2024) Tonsillectomy 04/03/2025. rapidly enlarging left tonsil Mixed hyperlipidemia Pharyngitis Chronic depression BMI 31.0-31.9,adult Essential hypertension (~04/2024) Renal oncocytoma of right kidney (~11/12/23) benign oncocytoma right kidney with robotic assisted partial nephrectomy 12/31/2023. Fracture of L1 vertebra (~11/2023) fracture of right transverse process of L1 on 11/12/2023 after a previous fall. Renal mass, right (11/12/23) Benign oncocytoma treated with robotic assisted partial nephrectomy 12/31/2023. 1.9 cm heterogeneously enhanced mass anterior upper pole right kidney noted on CT of the abdomen and pelvis in the ER on 11/12/2023. Anemia (~07/02/23) hemoglobin 10.5 with hematocrit 32.8 on 07/03/2023. hemoglobin 13.4 on 11/12/2023. Acne Fever blister Weakness Chest pain Right knee pain Pneumonia N&V (nausea and vomiting) Syncope Hypoxia Influenza A (~06/29/23) Personal history of colonic polyps Closed fracture of distal end of left radius (03/27/22) Obesity (BMI 30.0-34.9) Breast cancer screening by mammogram Normal mammogram 12/08/2023. Encounter for wellness examination in adult Epistaxis, recurrent (~07/2021) UTI (urinary tract infection) Colon cancer (04/30/20) polyp with well- Differentiated adenocarcinoma removed April 2017 with normal colonoscopy August 2017. Colonoscopy 04/30/2020 normal with recheck in 3 years. Abscess Abnormal colonoscopy Colon polyps Colonoscopy 10/26/2023 with 4 polyps of the transverse colon and 1 polyp of the rectum with recheck in 3 years. Alcohol abuse Alopecia Chronic anxiety Chronic rhinitis Surgical History Surgical History History of colonoscopy Family History Family History Grandparent Diabetes mellitus Acute myocardial infarction Mother Family history of cardiac disorder Father Cancer of blood vessel Social History Social History Smoking packs per day: 0.5 Smoking cigarettes per day: 10.0 Years smoked: 30 Smoking pack-years: 15.00 Smoking status: Current every day smoker Tobacco type: e-cigarettes/vaping Smoking end date: 07/06/05 Alcohol intake: current Alcohol use details: 2 bottles of wine a week Substance use: never Substance use type: does not use Last use: 8 YEARS AGO Do You Feel Safe in your Home?: Yes Lack of Transportation: No Lack of Food: Never True Current Housing: I Have Housing Concerned About Future Housing: No Difficulty Paying Gas/Electric Bills: No Difficulty Paying for Meds: No Currently Unemployed: No Education: High School Diploma/GED Difficulty w/ Childcare or Family Care: No Living arrangements: with family Additional living arrangements comments: Occupation/Education: occupation Gender identity (if verbalized by the patient): Female Sexual Orientation (if Verbalized by the Patient): Straight or Heterosexual Spiritual care concerns: No Exam 2 Narrative: GENERAL: [Well-appearing, well-nourished, and in no acute distress.] HEAD: Small 2 cm posterior scalp laceration on the left side without any active bleeding. No skull deformity or palpable crepitus. Otherwise normocephalic. EYES: [PERRLA and EOMI.] ENT: Nares clear, no rhinorrhea or epistaxis. Mucous membranes moist. NECK: Supple. CHEST: [Clear to auscultation. No respiratory distress.] HEART: [Regular rate and rhythm]. No murmur heard. [Normal peripheral pulses.] ABDOMEN: [Soft, nondistended], [nontender], [No rigidity or guarding] EXTREMITIES: Normal range of motion. [No edema.] SKIN: Warm, dry, no rash. NEURO: [No focal deficits]. Alert and oriented [x3.] PSYCH: [Normal mood and affect.] Course Vital Signs Vital signs: Vital Signs Pulse Rate 65 05/26/25 21:32 Respiratory Rate 15 05/26/25 21:32 Blood Pressure 111/83 05/26/25 21:32 Pulse Oximetry 99 05/26/25 21:32 Oxygen Delivery Room Air 05/26/25 21:32 Pulse Rate 66 05/27/25 00:39 Respiratory Rate 18 05/27/25 00:39 Blood Pressure 103/74 05/27/25 00:39 Pulse Oximetry 97 05/27/25 00:39 Oxygen Delivery Room Air 05/26/25 21:32 Procedures Laceration Laceration 1: Date: 05/27/25 Time: 00:13 Site: scalp Side (If applicable): left Size (cm): 2 Description: linear and clean Depth: simple, single layer Local Anesthetic: lidocaine 1% and with epi Amount of anesthesia used (mL): 3 Pre-repair: wound explored, irrigated and deep structures intact ====== Skin Level ====== Skin layer closed with: moris (3 moris) ====== Subcutaneous Layer ====== ====== Muscle Layer ====== ====== Tendon Layer ====== MDM - Syncope MDM Narrative Medical decision making narrative: 59-year-old female presenting to the emergency department after a syncopal event while she was drinking. Patient states that she has a history of frequent vagal events with hyperactive vagus nerve as told to her by her environmental protection geologist and previous physicians. Patient states she was out celebrating and celebrating to hard states she was having some drinks today and playing at the slot machine when she felt like she was about to pass out and vomited. She did briefly lose consciousness and fell down from a bar stool hitting the left side of her head. Quickly woke up thereafter. Answering all questions appropriately. No shaking or seizure-like activity. Presently she has no complaints at this time and denies any symptoms. denies any headache, neck pain, vision changes. No chest pain or discomfort. No nausea, vomiting presently. No abdominal discomfort or back pain. No traumatic injuries aside from hitting her head with a small scalp laceration. Patient has a small scalp laceration otherwise no apparent injuries. She has normal vital signs here. Patient denies any complaints. States that she has had previous episodes like this. endorses alcohol intake today but does not feel drunk. Vomited after the injury but no longer having the nausea vomiting. Laboratory studies CT of the head and EKG obtained. She was given fluids and Zofran. Scalp laceration repaired with moris. Given let gel for analgesia. CT of the head shows no acute abnormality. Alcohol level was 123. Laboratory studies show some dehydration she was given fluids. Moris applied to the scalp wound with good repair. She remains asymptomatic during repeat evaluations and safe for discharge home and will drive her home. Questions answered she was given discharge instructions. Medical Records Attestation: I reviewed the patient's medical records. Lab Data Attestation: I reviewed the patient's lab results. 05/26/25 21:50 05/26/25 21:50 Labs: Lab Results 05/26/25 Range/Units 21:50 WBC 6.3 (4.5-10.0) K/mm3 RBC 4.21 (4.2-5.4) M/mm3 Hgb 11.5 L (12.0-15.0) g/dL Hct 36.0 L (37.0-47.0) % MCV 85.5 (80-100) fl MCH 27.3 (26-34) pg MCHC 31.9 L (32-36) g/dl RDW 13.4 (11.5-14.5) % Plt Count 277 (150-375) k/mm3 MPV 9.5 (7.4-10.4) fl Immature Gran % (Auto) 0.2 (0-0.5) % Neut % (Auto) 41.8 L (45.5-73.1) % Lymph % (Auto) 40.5 (18.3-44.2) % [place] % (Auto) 10.1 H (2.6-8.5) % Eos % (Auto) 6.6 H (0-4.4) % Baso % (Auto) 0.8 (0.2-1.2) % Lymph # (Auto) 2.56 (0.9-3.2) K/mm3 [place] # (Auto) 0.6 (0.1-0.6) K/mm3 Eos # (Auto) 0.4 H (0-0.3) K/mm3 Baso # (Auto) 0.1 (0.0-0.1) K/mm3 Abs Immat Gran (auto) 0.01 (0.00-0.031) K/mm3 Absolute Neuts (auto) 2.6 (1.3-6.7) K/mm3 Absolute Nucleated RBC 0.000 (0.0-0.012) K/mm3 Nucleated RBC % 0.0 (0.0-0.2) % Sodium 136 L (137-145) mmol/L Potassium 3.8 (3.4-5.0) mmol/L Chloride 106 (98-107) mmol/L Carbon Dioxide 21 L (22-30) mmol/L Anion Gap 9 (4-12) mmol/L BUN 16 (7-17) mg/dL Creatinine 1.10 H (0.7-1.0) mg/dL Estim Creat Clear Calc 52 ml/min Estimated GFR 51 L (59 - ) Glucose 98 (65-110) mg/dL Calcium 8.5 (8.4-10.2) mg/dL Total Bilirubin 0.4 (0.2-1.3) mg/dL AST 20 (14-36) U/L ALT 8 (6-35) U/L Alkaline Phosphatase 71 (38-126) U/L Total Protein 7.5 (6.3-8.2) g/dL Albumin 4.1 (3.5-5.1) g/dL Ethyl Alcohol 123 (<10) mg/dL Imaging Data Attestation: I personally reviewed and interpreted this imaging study as follows: My impression: No acute abnormalities. Discharge Plan Discharge Clinical Impression: Syncope, vasovagal, Alcohol intoxication, Laceration of scalp Patient Disposition: Home Condition: Stable Instructions: Antibiotic Form, Syncope (ED), Staple Care (ED) Additional Instructions: Follow-up with your regular doctor. Return in 7-10 days either here, urgent care, your primary care provider to have the moris removed. Return with signs of infection. Return with any worsening or emergent concerns at any time. Patient Language: Mongolian Prescriptions: No Action mupirocin [Centany] 2 % ointment 1 applic topical TID Qty: 22 3RF Rx Instructions: Intranasal azelastine 137 mcg (0.1 %) spray,non-aerosol 1 - 2 spray intranasal Q12H Qty: 30 0RF Rx Instructions: administer into each nostril. Aim back/up/out ascorbic acid (vitamin C) 1,000 mg Tablet 1 g PO DAILY magnesium 200 mg Tablet 400 mg PO DAILY Rx Instructions: magnesium asporotate 400mg daily coenzyme Q10 100 mg Capsule 100 mg PO DAILY mv-mn-iron fum-FA-om3,6,9 no.3 18-600 mg-mcg Capsule 1 cap PO DAILY Patient Comments: will hold mtv with iron prior to colonoscopy [facility] 250-30-3.5 mg Tablet 1 tablet PO DAILY omeprazole 40 mg capsule,delayed release(DR/EC) 40 mg PO HS MDD laryngopharyngeal reflux Rx Instructions: take 1 capsule q.a.m. on empty stomach and wait 20 minutes to eat or drink afterwards lisinopril 20 mg tablet 20 mg PO HS Qty: 90 3RF paroxetine HCl [Paxil] 20 mg tablet 20 mg PO . q.h.s. Qty: 30 11RF amlodipine 5 mg tablet 5 mg PO DAILY Qty: 30 11RF buspirone 5 mg tablet 5 mg PO BID Qty: 60 11RF Follow-up/Referrals: Cristiano Carlson MD [Primary Care Provider, [facility]] Time of Disposition: 00:15
--- NOTE | 2025-05-26 23:17 | PC.NURSE ---
Report received from ENRIQUE Rincon. Assumed care of patient at this time.
[2025-05-26] MEDS: TETANUS,DIPHTHERIA,AC PERTUSSIS ADULT (0.5 ML) BOOSTRIX IM (23:32)
[2025-05-26] MEDS: LIDOCAINE, EPINEPHRINE, TETRACAINE VISCOUS SOLN 3 ML TOPICAL (23:33)
[2025-05-27 00:39] VITALS: BP 103/74; PULSE 66; RESP 18; O2SAT 97
== END 2025-05-27 00:40 | disposition home or self-care (01) ==
PROVIDERS: Emergency Provider Student in an Organized Health Care Education/Training Program; PCP Family Medicine
DX: S01.01XA Laceration without foreign body of scalp, initial encounter (principal); R55 Syncope and collapse; F10.129 Alcohol abuse with intoxication, unspecified; Y90.9 Presence of alcohol in blood, level not specified; E78.5 Hyperlipidemia, unspecified; F17.210 Nicotine dependence, cigarettes, uncomplicated; Z85.038 Personal history of other malignant neoplasm of large intestine; W07.XXXA Fall from chair, initial encounter; Z23 Encounter for immunization
CPT/HCPCS: 12002; 36415; 70450; 71046; 80053; 82077; 85025; 90471; 90715; 93005; 99284; J7120